=== PATIENT | female | born 1960 | race Caucasian/White ===

== ENCOUNTER → 2018-01-26 12:54 | Outpatient (CLI) | payer BC, SELFPAY ==
--- NOTE | 2018-01-26 12:58 | MR_ITS ---
MR lower leg RT wo con Ordering Physician: Trina House MD Patient Age: 58 years: Female HISTORY: ITS.REASON: RIGHT LEG PAIN Pop sensation sensation posterior aspect of tibia-fibula. Now Unable to bear weight painful to touch. TECHNIQUE: Multiplanar multisequence imaging 1.5T MRI COMPARISON : FINDINGS There is diffuse edema seen throughout the medial belly gastrocnemius muscle which becomes most pronounced towards its its myotendinous junction. Findings reflect moderately pronounced muscle strain and interstitial tear of medial head of gastrocnemius muscle, with edema most evident distally and towards towards its myotendinous junction.. Common site for this interstitial muscle tear. However also note focal Fluid reticulation actually most evident just medial to the gastrocnemius.,- Between the gastrocnemius and Soleus muscle. I would note that a tear of the plantaris tendon can't yield fluid in this latter space. An can give rise to the pop sensation described.. These entities can occur together which may be the case here., However medial head gastrocnemius interstitial tear will have a a longer recovery time then a than the small less problematic plantaris tendon rupture. IMPRESSION: Muscle strain injury & interstitial muscle tear of the medial head gastrocnemius... Edema at medial gastrocnemius muscle which becomes more evident towards its distal myotendinous junction. I would also note moderate focal fluid collecting medial to the gastrocnemius muscle-between it & the Soleus muscle. Although conceivably this could be related to the gastrocnemius muscle injury there is more focal fluid collection than I would expect. Thus associated rupture of the small plantaris tendon suspect, as it could yield this appearance & both can be occur with the same type injury..... Rupture of the small relatively insignificant tendon may yield the pop sensation at time of injury. The gastrocnemius muscle strain/interstitial tear is more significant injury and will require longer recovery .
== END ==
PROVIDERS: Family Provider Family Medicine; PCP Family Medicine; Visit Provider Emergency Medicine
DX: M79.604 Pain in right leg (principal)
CPT/HCPCS: 73718

== ENCOUNTER → 2018-07-28 13:05 | Outpatient (CLI) | payer BC, SELFPAY ==
--- NOTE | 2018-07-28 13:10 | XR_ITS ---
XR wrist RT min 3V HISTORY ITS.REASON: wrist pain ORDERING PHYSICIAN: Pebbles Ribeiro MD PATIENT AGE: 58 years FINDINGS: There is negative ulnar variance is some obliquity of the distal radioarticular surface which is a question clinical significance. No obvious impingement of the radius at the radioulnar joint. The carpal bones have an unremarkable appearance. IMPRESSION: Negative ulnar variance with oblique angle of the distal radius
== END ==
PROVIDERS: PCP Family Medicine; Visit Provider Orthopaedic Surgery
DX: M25.531 Pain in right wrist (principal)
CPT/HCPCS: 73110

== ENCOUNTER → 2018-08-23 09:41 | Outpatient (CLI) | payer BC, SELFPAY ==
[2018-08-23 10:04] LABS: Basophils % 0.6 % (0.1-2.0); Eosinophils # 0.2 K/mm3 (0.0-0.4); Eosinophils % 3.2 % (0.1-12.0); Hematocrit 44.8 % (37.0-47.0); Hemoglobin 14.7 g/dL (12.2-16.2); Lymphocytes # 2.4 K/mm3 (0.7-4.5); Lymphocytes % 45.4 % (10-50); Mean Corpuscular HGB Conc 32.8 g/dL (31.8-35.4); Mean Corpuscular Hemoglobin 29.2 pg (27.0-31.2); Mean Corpuscular Volume 89.2 fl (81-99); Mean Platelet Volume 6.9 fl (7.4-10.4); Monocytes # 0.3 K/mm3 (0.1-1.0); Monocytes % 5.8 % (1.7-9.3); Neutrophils # 2.4 K/mm3 (1.8-7.8); Neutrophils % 44.9 % (37.0-80.0); Platelet Count 165 K/mm3 (142-424); Red Blood Count 5.02 M/mm3 (4.20-5.40); Red Cell Distribution Width 14.6 % (11.5-17.5); White Blood Count 5.2 K/mm3 (4.8-10.8)
[2018-08-23 11:35] LABS: Anion Gap 14.3 mEq/L (5-15); Blood Urea Nitrogen 8 mg/dL (7-18); Calcium 9.4 mg/dL (8.5-10.1); Carbon Dioxide 28 mmol/L (21.0-32.0); Chloride 106 mmol/L (98-107); Creatinine,Serum 0.53 mg/dL (0.55-1.02); Estimated Glomerular Filt Rate 119 ml/min (>60); GFR (African American) 144 ML/MIN (>60); Glucose 104 mg/dL (74-106); Potassium 4.3 mmoL/L (3.5-5.1); Sodium 144 mmol/L (136-145)
== END ==
PROVIDERS: Visit Provider Orthopaedic Surgery
DX: Z01.818 Encounter for other preprocedural examination (principal); G56.01 Carpal tunnel syndrome, right upper limb
CPT/HCPCS: 36415; 80048; 85025

== ENCOUNTER → 2019-01-01 07:16 | Outpatient (CLI) | payer OTHER, SELFPAY ==
[2019-01-01 09:19] LABS: Hemoglobin A1C 6.7 % (0.0-7.0)
[2019-01-01 10:54] LABS: Alanine Aminotransferase 77 U/L (12-78); Albumin Level 3.5 gm/dL (3.4-5.0); Albumin/Globulin Ratio 1.1 (1.1-1.8); Alkaline Phosphatase 88 U/L (46-116); Anion Gap 12.3 mEq/L (5-15); Aspartate Amino Transferase 45 U/L (15-37); Bilirubin,Total 0.4 mg/dL (0.2-1.0); Blood Urea Nitrogen 9 mg/dL (7-18); Calcium 8.7 mg/dL (8.5-10.1); Carbon Dioxide 29 mmol/L (21.0-32.0); Chloride 106 mmol/L (98-107); Chol/HDL Ratio 7.7 (1-3.5); Cholesterol 270 mg/dL (140-200); Creatinine,Serum 0.62 mg/dL (0.55-1.02); Estimated Glomerular Filt Rate 100 ml/min (>60); GFR (African American) 120 ML/MIN (>60); Globulin 3.2 gm/dl (1.3-3.2); Glucose 113 mg/dL (74-106); HDL Cholesterol 35 mg/dL (29-89); LDL Cholesterol 194 mg/dL (0-130); Potassium 4.3 mmoL/L (3.5-5.1); Sodium 143 mmol/L (136-145); Thyroid Stimulating Hormone 0.53 uIU/ml (0.358-3.740); Total Protein,Serum 6.7 gm/dL (6.4-8.2); Triglycerides 204 mg/dL (30-200); VLDL Cholesterol 41 mg/dL (0-40)
== END ==
PROVIDERS: Visit Provider Family Medicine
DX: E11.9 Type 2 diabetes mellitus without complications (principal); Z79.84 Long term (current) use of oral hypoglycemic drugs; E78.5 Hyperlipidemia, unspecified; E03.9 Hypothyroidism, unspecified
CPT/HCPCS: 36415; 80053; 80061; 83036; 84443

== ENCOUNTER → 2019-08-31 17:09 | Outpatient (CLI) | payer OTHER, SELFPAY ==
--- NOTE | 2019-08-31 17:21 | XR_ITS ---
PROCEDURE: XR CHEST 2V CLINICAL HISTORY: BRONCHITIS COMPARISON: CTAC CTA-CHEST from 02/22/2014 CXR CHEST(2 VIEWS-NOT PORTABLE) from 02/24/2014 CXR CHEST(2 VIEWS-NOT PORTABLE) from 03/22/2014 CXR CHEST(2 VIEWS-NOT PORTABLE) from 06/12/2016 FINDINGS: The cardiomediastinal silhouette and pulmonary vascularity are within normal limits. The lungs are clear without infiltrates, suspicious nodules, or pleural effusions. No acute bony abnormalities. IMPRESSION: No acute findings. Dictated by: Dmitry Yang 09/01/2019 09:23 Electronically signed by Dmitry Yang in [facility] 09/01/2019 09:23
== END ==
PROVIDERS: PCP Physician Assistant; Visit Provider Physician Assistant
DX: J40 Bronchitis, not specified as acute or chronic (principal)
CPT/HCPCS: 71046

== ENCOUNTER → 2019-12-19 11:57 | Outpatient (CLI) | payer OTHER, SELFPAY ==
--- NOTE | 2019-12-19 12:02 | XR_ITS ---
PROCEDURE: XR FOOT WT BEARING LT 3V CLINICAL INDICATION: pain COMPARISON: FTR3 FOOT-RT-3 VIEWS from 06/21/2013 FINDINGS: No fracture or dislocation. No lytic or blastic change. There is normal mineralization. There are mild osteoarthritic changes at the 1st MTP joint. There is borderline pes planus. Other findings:None. IMPRESSION: Mild osteoarthritis of the 1st MTP joint with borderline pes planus Dictated by: Jose Miguel Ferreira MD 12/19/2019 12:19 Electronically signed by Jose Miguel Ferreira MD in [facility] 12/19/2019 12:19
--- NOTE | 2019-12-19 12:02 | XR_ITS ---
PROCEDURE: XR FOOT WT BEARING RT 3V CLINICAL INDICATION: pain COMPARISON: FTR3 FOOT-RT-3 VIEWS from 06/21/2013 FINDINGS: No fracture or dislocation. No lytic or blastic change. There is normal mineralization. The joint spaces are well-preserved. No significant degenerative/arthritic changes. No erosive changes evident. Other findings:None. IMPRESSION: No acute findings. Dictated by: Jose Miguel Ferreira MD 12/19/2019 12:19 Electronically signed by Jose Miguel Ferreira MD in [facility] 12/19/2019 12:19
== END ==
PROVIDERS: PCP Family Medicine; Visit Provider Podiatrist
DX: M79.672 Pain in left foot (principal); M79.671 Pain in right foot
CPT/HCPCS: 73630

== ENCOUNTER → 2020-03-28 14:32 | Outpatient (CLI) | payer OTHER, SELFPAY ==
[2020-03-28 15:14] LABS: Basophils % 0.6 % (0.1-2.0); Eosinophils # 0.3 K/mm3 (0.0-0.4); Eosinophils % 4.2 % (0.1-12.0); Hematocrit 45.6 % (37.0-47.0); Hemoglobin 15.5 g/dL (12.2-16.2); Lymphocytes # 2.7 K/mm3 (0.7-4.5); Lymphocytes % 41.6 % (10-50); Mean Corpuscular Hemoglobin 31.2 pg (27.0-31.2); Mean Corpuscular Volume 91.7 fl (81-99); Mean Platelet Volume 8.3 fl (7.4-10.4); Monocytes # 0.4 K/mm3 (0.1-1.0); Monocytes % 6.4 % (1.7-9.3); Neutrophils % 47.1 % (37.0-80.0); Platelet Count 183 K/mm3 (142-424); Red Blood Count 4.97 M/mm3 (4.20-5.40); White Blood Count 6.4 K/mm3 (4.8-10.8)
[2020-03-30 20:30] LABS: Covid-19 Nasal PCR Sendout Lex Not Detected
== END ==
PROVIDERS: PCP Family Medicine; Visit Provider Nurse Practitioner Family
DX: Z03.818 Encounter for observation for suspected exposure to other biological agents ruled out (principal)
CPT/HCPCS: 36415; 85025; U0004

== ENCOUNTER → 2020-05-01 07:12 | Outpatient (CLI) | payer OTHER, SELFPAY ==
[2020-05-01 09:04] LABS: Chloride 102 mmol/L (98-107); Potassium 4.2 mmoL/L (3.5-5.1); Sodium 142 mmol/L (136-145)
[2020-05-01 09:07] LABS: Alanine Aminotransferase 42 U/L (12-78); Albumin/Globulin Ratio 1.4 (1.1-1.8); Alkaline Phosphatase 83 U/L (38-126); Anion Gap 12.2 mEq/L (5-15); Aspartate Amino Transferase 39 U/L (14-36); Bilirubin,Total 0.6 mg/dl (0.2-1.3); Blood Urea Nitrogen 6 mg/dl (7-17); Carbon Dioxide 32 mmol/L (22.0-30.0); Cholesterol 176 mg/dl (140-200); Estimated Glomerular Filt Rate 127 ml/min (>60); GFR (African American) 153 ML/MIN (>60); Globulin 2.8 g/dL (1.3-3.2); Total Protein,Serum 6.8 g/dl (6.3-8.2); Triglycerides 145 mg/dl (30-150); VLDL Cholesterol 29 mg/dL (0-40)
[2020-05-01 09:08] LABS: Calcium 9.4 mg/dl (8.4-10.2); Glucose 140 mg/dl (74-100); HDL Cholesterol 44 mg/dl (40-60)
[2020-05-01 09:10] LABS: Hemoglobin A1C 6.5 % (4.0-6.0)
[2020-05-01 09:18] LABS: Direct LDL Cholesterol 109.66 mg/dL (100-129)
[2020-05-01 09:24] LABS: T4 (Thyroxine) 13.1 ug/dl (5.53-11.0)
[2020-05-01 09:38] LABS: Thyroid Stimulating Hormone 0.12 uIU/mL (0.465-4.68)
== END ==
PROVIDERS: Visit Provider Family Medicine
DX: E78.5 Hyperlipidemia, unspecified (principal); E03.9 Hypothyroidism, unspecified; F41.8 Other specified anxiety disorders; E11.9 Type 2 diabetes mellitus without complications; Z79.84 Long term (current) use of oral hypoglycemic drugs
CPT/HCPCS: 36415; 80053; 80061; 83036; 84436; 84443

== ENCOUNTER 2020-07-01 09:21 | Emergency (ER) | payer OTHER, SELFPAY ==
[2020-07-01 09:33] VITALS: BP 147/89; PULSE 85; RESP 20; TEMP 36.7; O2SAT 97; BMI 33.3
--- NOTE | 2020-07-01 09:52 | HMH.EDUTC ---
[facility] [place] Clinical Impression: Viral syndrome, Close exposure to COVID-19 virus Sinusitis Qualifiers: Sinusitis location: unspecified location Chronicity: acute Recurrence: non-recurrent Qualified Code(s): J01.90 - Acute sinusitis, unspecified Disposition: Home, Self-Care Condition on Discharge: Good Instructions: DI for Sinusitis, Preventing the Spread of Coronavirus Discharge Instructions Additional Instructions: Drink plenty of fluids. Take tylenol for pain or fever. Take the medications as directed. Follow up with your regular doctor. GO TO THE ER FOR ANY WORSENING SYMPTOMS Prescriptions: Ondansetron [Zofran 4mg ODT] 4 mg PO Q8HP PRN #12 tab.rapdis PRN Reason: Nausea Transmission Status: Received by [id number] Doxycycline Hyclate [Doxycycline 100mg Capsule] 100 mg PO Q12 10 Days #20 cap Transmission Status: Received by [id number] Benzonatate [Tessalon Perle 100mg Cap] 100 mg PO TIDP PRN #30 cap PRN Reason: Cough Transmission Status: Received by [id number] Referrals: Cameron Cedeno MD [Primary Care Provider] - Time of Disposition: 10:21 Medical Decision Making - Medical Records Medical records reviewed: No: I reviewed the patient's medical records. - Santino Inquiry Pt receiving controlled substance: No Vital Signs: 07/01/20 09:33 07/01/20 10:28 Temperature 98.0 F 98.0 F Temperature Source Oral Oral Pulse Rate 85 Pulse Rate [Radial] 85 Respiratory Rate 20 20 Blood Pressure 147/89 H Blood Pressure [Right Arm] 147/89 H Blood Pressure Mean [Right Arm] 108 Blood Pressure Source Automatic Cuff Blood Pressure Source [Right Arm] Automatic Cuff Blood Pressure Position Sitting Blood Pressure Position [Right Arm] Sitting 02 Sat by Pulse Oximetry 97 Oxygen Delivery Method Room Air Room Air Orders (Tests/Meds): ORDERS Category Date Time Status Covid-19 Nasal PCR Sendout [facility] Routine Lab 07/01/20 09:32 [place] [facility] [place] - General Stated complaint: v/d Time Seen by Provider: 07/01/20 09:52 Mode of Arrival: Ambulatory Source of Information: Patient Limitations: No Limitations Description of Symptoms (Recalled from Triage Doc. by RN): cough, congestion, N/V, loss of taste and smell, SOB, KRUSE since thursday. HEENT Symptoms (Recalled from RN notes): Yes Resp Symptoms (Recalled from RN notes): Yes Skin Symptoms (Recalled from RN notes): No MS Symptoms (Recalled from RN notes): No Functional Status (Recalled from RN notes): wnl - History of Present Illness Provider Complaint: She c/o body aches, fever (undocumented), n/v/d, cough, sinus congestion, and sore throat since yesterday morning. - Related Data Home Medications Medication Instructions Recorded Confirmed metformin 500 mg tablet 500 mg PO BID 07/28/18 01/31/20 sitagliptin 50 mg tablet 50 mg PO DAILY 07/28/18 01/31/20 apixaban 2.5 mg tablet 2.5 mg PO BID 12/20/19 01/31/20 atorvastatin 20 mg tablet 20 mg PO tab 01/31/20 01/31/20 levothyroxine 100 mcg tablet 100 mcg PO tab 01/31/20 01/31/20 Previous Rx's Medication Instructions Recorded diclofenac sodium 1 % topical gel 4 g TOPICAL QID PRN #100 g 01/31/20 Benzonatate [Tessalon Perle 100mg 100 mg PO TIDP PRN #30 cap 07/01/20 Cap] Doxycycline Hyclate [Doxycycline 100 mg PO Q12 10 Days #20 cap 07/01/20 100mg Capsule] Ondansetron [Zofran 4mg ODT] 4 mg PO Q8HP PRN #12 tab.rapdis 07/01/20 Allergies Allergy/AdvReac Type Severity Reaction Status Date / Time cefazolin Allergy Intermediate I-HIVES Verified 01/31/20 15:14 erythromycin base Allergy Intermediate I-RASH Verified 01/31/20 15:14 [From E-MYCIN] - Worker's Comp Is this a Worker's Comp case?: No [facility] History - Hepatitis A Screen Drug use history?: No High risk sexual behaviors?: No History of sexually transmitted infection?: No Currently employed?: No Childcare worker?: No Do you have indoor plumbing?: Yes Do you have
[2020-07-01 10:28] VITALS: BP 147/89; PULSE 85; RESP 20; TEMP 36.7; O2SAT 97
[2020-07-02 11:43] LABS: Covid-19 Nasal PCR Sendout UK Detected
--- NOTE | 2020-07-02 11:44 | PC.NURSE ---
PT CALLED AND NOTIFIED OF POSITIVE COVID RESULT
== END 2020-07-01 10:29 | disposition home or self-care (01) ==
PROVIDERS: Emergency Provider Nurse Practitioner Family; PCP Family Medicine
DX: U07.1 COVID-19 (principal); J01.90 Acute sinusitis, unspecified; E78.5 Hyperlipidemia, unspecified; E11.9 Type 2 diabetes mellitus without complications; Z79.84 Long term (current) use of oral hypoglycemic drugs; Z79.899 Other long term (current) drug therapy
CPT/HCPCS: 99201; U0003

== ENCOUNTER 2020-07-10 11:55 | Emergency (ER) | payer OTHER, SELFPAY ==
[2020-07-10 12:54] VITALS: BP 143/89; PULSE 92; RESP 19; TEMP 36.9; O2SAT 98; BMI 33.3
--- NOTE | 2020-07-10 13:09 | HMH.EDUTC ---
[facility] [place]ression: COVID-19 Disposition: Home, Self-Care Condition on Discharge: Good Instructions: Preventing the Spread of Coronavirus Discharge Instructions Referrals: Cameron Cedeno MD [Primary Care Provider] - Time of Disposition: 13:10 Medical Decision Making - Medical Records Medical records reviewed: No: I reviewed the patient's medical records. - Santino Inquiry Pt receiving controlled substance: No Vital Signs: 07/10/20 12:54 07/10/20 13:20 Temperature 98.4 F 98.4 F Temperature Source Oral Oral Pulse Rate 92 H Pulse Rate [Left] 92 H Respiratory Rate 19 19 Blood Pressure 143/89 H Blood Pressure [Right Arm] 143/89 H Blood Pressure Mean [Right Arm] 107 Blood Pressure Source [Right Arm] Automatic Cuff Blood Pressure Position [Right Arm] Sitting 02 Sat by Pulse Oximetry 98 Oxygen Delivery Method Room Air Orders (Tests/Meds): ORDERS Category Date Time Status Covid-19 Nasal PCR Sendout [facility] Stat Lab 07/10/20 12:40 [place] [facility] [place] General Stated complaint: covid retested Time Seen by Provider: 07/10/20 13:09 Mode of Arrival: Ambulatory Source of Information: Patient Limitations: No Limitations Description of Symptoms (Recalled from Triage Doc. by RN): Retest Covid HEENT Symptoms (Recalled from RN notes): No Resp Symptoms (Recalled from RN notes): No Skin Symptoms (Recalled from RN notes): No MS Symptoms (Recalled from RN notes): No Functional Status (Recalled from RN notes): wnl - History of Present Illness Provider Complaint: She is here to be retested for covid. She has been positive. She needs a negative test to be allowed to go back to work. - Related Data Home Medications Medication Instructions Recorded Confirmed metformin 500 mg tablet 500 mg PO BID 07/28/18 01/31/20 sitagliptin 50 mg tablet 50 mg PO DAILY 07/28/18 01/31/20 apixaban 2.5 mg tablet 2.5 mg PO BID 12/20/19 01/31/20 atorvastatin 20 mg tablet 20 mg PO tab 01/31/20 01/31/20 levothyroxine 100 mcg tablet 100 mcg PO tab 01/31/20 01/31/20 Previous Rx's Medication Instructions Recorded diclofenac sodium 1 % topical gel 4 g TOPICAL QID PRN #100 g 01/31/20 Benzonatate [Tessalon Perle 100mg 100 mg PO TIDP PRN #30 cap 07/01/20 Cap] Doxycycline Hyclate [Doxycycline 100 mg PO Q12 10 Days #20 cap 07/01/20 100mg Capsule] Ondansetron [Zofran 4mg ODT] 4 mg PO Q8HP PRN #12 tab.rapdis 07/01/20 Allergies Allergy/AdvReac Type Severity Reaction Status Date / Time cefazolin Allergy Intermediate I-HIVES Verified 07/10/20 12:56 erythromycin base Allergy Intermediate I-RASH Verified 07/10/20 12:56 [From E-MYCIN] - Worker's Comp Is this a Worker's Comp case?: No Is this an [facility] Worker's Comp?: No Is this a [facility] Worker's Comp?: No [facility] History - Hepatitis A Screen Drug use history?: No High risk sexual behaviors?: No History of sexually transmitted infection?: No Currently employed?: No Childcare worker?: No Do you have indoor plumbing?: No Do you have electricity?: No Attestation statement:: This patient has been screened for Hepatitis A risk factors. I have reviewed the patient's past medical history: Yes Medical History: Reports:: Diabetes Mellitus Type 2, Hyperlipidemia Denies:: Cancer, Diabetes Mellitus Type 1, Internal Pacemaker, MRSA, Seizures Other Medical History: Reports: Arthritis. Denies: Blood Transfusion Reaction Laterality Cases: Left: Arthroscopy Shoulder, Bilateral: Other Other Surgeries: Yes: No Previous Surgery, Cholecystectomy, Hysterectomy-Total, Tubal Ligation, Other. No: Pacemaker Amputation: No Fractures: No Comment: Back fusion procedure - Social History Smoking Status: Never smoker Alcohol Intake: never Occupational Status: other Housing: house Household Members: family Family Hx:: Cancer, Hypertension, Diabetes, Hyperlipidemia, Coronary Artery Disease ROS Obtained: Yes All systems reviewed & no additional complaints
[2020-07-10 13:20] VITALS: BP 143/89; PULSE 92; RESP 19; TEMP 36.9; O2SAT 98
[2020-07-11 10:01] LABS: Covid-19 Nasal PCR Sendout P&C POSITIVE
--- NOTE | 2020-07-11 10:27 | PC.NURSE ---
PT NOTIFIED OF POSITIVE BOBY COLIN
== END 2020-07-10 13:20 | disposition home or self-care (01) ==
PROVIDERS: Emergency Provider Nurse Practitioner Family; PCP Family Medicine
DX: U07.1 COVID-19 (principal); E11.9 Type 2 diabetes mellitus without complications; E78.5 Hyperlipidemia, unspecified
CPT/HCPCS: 99201; U0004

== ENCOUNTER → 2020-10-01 07:25 | Outpatient (CLI) | payer OTHER, SELFPAY ==
--- NOTE | 2020-10-01 07:41 | XR_ITS ---
PROCEDURE: XR CHEST 2V CLINICAL HISTORY: SOB COMPARISON: CT CTAC CTA-CHEST from 02/22/2014 CR CXR CHEST(2 VIEWS-NOT PORTABLE) from 03/22/2014 CR CXR CHEST(2 VIEWS-NOT PORTABLE) from 06/12/2016 CR XR CHEST 2V from 08/31/2019 FINDINGS: The cardiomediastinal silhouette and pulmonary vascularity are within normal limits. The lungs are clear without infiltrates, suspicious nodules, or pleural effusions. There is depression of the left shoulder with inferior angulation of the distal clavicle. IMPRESSION: No acute findings. Dictated by: Jose Miguel Ferreira MD 10/01/2020 09:25 Jose Miguel Ferreira MD in [facility] 10/01/2020 09:25
[2020-10-01 08:51] LABS: Alanine Aminotransferase 56 U/L (12-78); Albumin Level 4.2 g/dl (3.5-5.0); Albumin/Globulin Ratio 1.6 (1.1-1.8); Alkaline Phosphatase 90 U/L (38-126); Anion Gap 10.2 mEq/L (5-15); Aspartate Amino Transferase 60 U/L (14-36); Bilirubin,Total 0.7 mg/dl (0.2-1.3); Blood Urea Nitrogen 9 mg/dl (7-17); Calcium 9.3 mg/dl (8.4-10.2); Carbon Dioxide 29 mmol/L (22.0-30.0); Chloride 106 mmol/L (98-107); Chol/HDL Ratio 4.5 (1-3.5); Cholesterol 192 mg/dl (140-200); Estimated Glomerular Filt Rate 103 ml/min (>60); GFR (African American) 124 ML/MIN (>60); Globulin 2.6 g/dL (1.3-3.2); Glucose 166 mg/dl (74-100); HDL Cholesterol 43 mg/dl (40-60); Potassium 4.2 mmoL/L (3.5-5.1); Sodium 141 mmol/L (136-145); Total Protein,Serum 6.8 g/dl (6.3-8.2); Triglycerides 183 mg/dl (30-150); VLDL Cholesterol 37 mg/dL (0-40)
[2020-10-01 09:02] LABS: C-Reactive Protein 2.9 mg/L (0-4); Direct LDL Cholesterol 117.91 mg/dL (100-129)
[2020-10-01 09:21] LABS: Hemoglobin A1C 7.2 % (4.0-6.0); Thyroid Stimulating Hormone 0.18 uIU/mL (0.465-4.68)
== END ==
PROVIDERS: Visit Provider Family Medicine
DX: R06.02 Shortness of breath (principal); B94.8 Sequelae of other specified infectious and parasitic diseases; E11.9 Type 2 diabetes mellitus without complications; E03.9 Hypothyroidism, unspecified; E78.5 Hyperlipidemia, unspecified; Z79.84 Long term (current) use of oral hypoglycemic drugs; Z86.16 Personal history of COVID-19
CPT/HCPCS: 36415; 71046; 80053; 80061; 83036; 84443; 86140

== ENCOUNTER → 2020-12-12 15:59 | Outpatient (CLI) | payer OTHER, SELFPAY ==
[2020-12-12 16:39] LABS: D-Dimer 0.29 ug/mL (0.0-0.5)
== END ==
PROVIDERS: Visit Provider Internal Medicine Pulmonary Disease
DX: Z86.16 Personal history of COVID-19 (principal); B94.8 Sequelae of other specified infectious and parasitic diseases; R06.09 Other forms of dyspnea; R05 Cough
CPT/HCPCS: 36415; 85378

== ENCOUNTER → 2021-01-09 07:47 | Outpatient (CLI) | payer OTHER, SELFPAY | PROVIDERS: PCP Family Medicine; Visit Provider Internal Medicine Pulmonary Disease | DX: R06.00 Dyspnea, unspecified (principal); Z86.16 Personal history of COVID-19 | CPT/HCPCS: 94060; 94618; 94726; 94729 ==

== ENCOUNTER → 2021-05-31 08:23 | Outpatient (CLI) | payer BC, SELFPAY | PROVIDERS: PCP Family Medicine; Visit Provider Nurse Practitioner | DX: Z20.822 Contact with and (suspected) exposure to COVID-19 (principal) | CPT/HCPCS: C9803; U0003; U0005 ==

== ENCOUNTER → 2021-08-26 13:02 | Outpatient (CLI) | payer BC, SELFPAY ==
[2021-08-26 14:15] VITALS: PULSE 92; PULSE 95
== END ==
PROVIDERS: PCP Family Medicine; Visit Provider Internal Medicine Pulmonary Disease
DX: R06.09 Other forms of dyspnea (principal)
CPT/HCPCS: 94060; 94640; 94727; 94729

== ENCOUNTER → 2022-03-03 07:45 | Outpatient (CLI) | payer BC, SELFPAY ==
--- NOTE | 2022-03-03 07:48 | MM_ITS ---
PROCEDURE INFORMATION: Exam: MG Bilateral Screening 3D Mammography Exam date and time: 03/03/2022 7:53 AM Age: 62 years old Clinical indication: Screening examination. Her mother had breast cancer in her early 40s. TECHNIQUE: Imaging protocol: Bilateral Screening tomosynthesis and 2D mammography including computer-aided detection (CAD) when performed. COMPARISON: 1. MG DMSB DIG MAMM-SCREEN MARIUSZ W/CAD 02/11/2017 9:22 AM 2. MG DMSB DIG MAMM-SCREEN MARIUSZ 01/08/2016 8:41 AM FINDINGS: MAMMOGRAPHY: Breast composition: There are scattered areas of fibroglandular density. Mass: No suspicious mass. Architectural distortion: None. Calcifications: No suspicious calcifications. Asymmetric density: None. Skin thickening: None. Axillary adenopathy: None. IMPRESSION: No mammographic evidence of malignancy. Annual screening is recommended unless otherwise clinically indicated. ASSESSMENT: BI-RADS Category 1: Negative
--- NOTE | 2022-03-03 07:49 | XR_ITS ---
FINAL REPORT TECHNIQUE: Bone mineral density was calculated of the right forearm and bilateral hips. CLINICAL HISTORY: . post menopausal FINDINGS: DEXA BONE DENSITY AXIAL SKELETON Using the right forearm the bone mineral density of the distal 1/3 is 0.675 g/cm2, corresponding to T-score of -0.3. Using the left hip, the bone mineral density of the femoral neck is 0.981 g/cm2, corresponding to a T-score of 1.2. Using the right hip, the bone mineral density of the femoral neck is 0.930 g/cm2, corresponding to a T-score of 0.7. NOTE: T-score: Standard deviation compared with peak bone mass of young adult mean. *Following the recommendations of the International Society of Bone densitometry, classification of hip BMD is based on the lower of two T-scores; total hip or femoral neck. IMPRESSION: Normal bone mineral density of the lumbar spine and hip. FRAX not reported because all T-scores for right forearm and bilateral hips are at or above -1.0 Reviewed, Interpreted and Dictated by David Vazquez MD Transcribed by Marie Pierre Authenticated and [facility]
== END ==
PROVIDERS: PCP Family Medicine; Visit Provider Family Medicine
DX: Z12.31 Encounter for screening mammogram for malignant neoplasm of breast (principal); Z78.0 Asymptomatic menopausal state
CPT/HCPCS: 77063; 77067; 77080

== ENCOUNTER → 2022-08-30 08:18 | Outpatient (CLI) | payer BC, SELFPAY ==
[2022-08-30 08:45] LABS: Hemoglobin A1C 7.8 % (4.0-6.0)
[2022-08-30 08:53] LABS: Alanine Aminotransferase 112 U/L (12-78); Albumin Level 4.4 g/dl (3.5-5.0); Albumin/Globulin Ratio 1.4 (1.1-1.8); Alkaline Phosphatase 114 U/L (38-126); Anion Gap 10.1 mEq/L (5-15); Aspartate Amino Transferase 117 U/L (14-36); Blood Urea Nitrogen 10 mg/dl (7-17); Calcium 9.5 mg/dl (8.4-10.2); Carbon Dioxide 27 mmol/L (22.0-30.0); Chloride 108 mmol/L (98-107); Chol/HDL Ratio 4.4 (1-3.5); Cholesterol 195 mg/dl (140-200); Estimated Glomerular Filt Rate 102 ml/min (>60); GFR (African American) 123 ML/MIN (>60); Globulin 3.1 g/dL (1.3-3.2); Glucose 204 mg/dl (74-100); HDL Cholesterol 44 mg/dl (40-60); Potassium 4.1 mmoL/L (3.5-5.1); Sodium 141 mmol/L (136-145); Total Protein,Serum 7.5 g/dl (6.3-8.2); Triglycerides 208 mg/dl (30-150); VLDL Cholesterol 42 mg/dL (0-40)
[2022-08-30 09:04] LABS: Direct LDL Cholesterol 117.25 mg/dL (100-129)
[2022-08-30 09:24] LABS: Thyroid Stimulating Hormone 1.27 uIU/mL (0.465-4.68)
== END ==
PROVIDERS: PCP Family Medicine; Visit Provider Family Medicine
DX: E11.9 Type 2 diabetes mellitus without complications (principal); E03.9 Hypothyroidism, unspecified; E78.5 Hyperlipidemia, unspecified; Z79.84 Long term (current) use of oral hypoglycemic drugs
CPT/HCPCS: 36415; 80053; 80061; 83036; 84443

== ENCOUNTER → 2022-10-01 07:47 | Outpatient (CLI) | payer BC, SELFPAY ==
--- NOTE | 2022-10-01 07:49 | US_ITS ---
FINAL REPORT CLINICAL HISTORY: ELEVATED LFT FINDINGS: RIGHT UPPER QUADRANT ULTRASOUND Sonographic images of the right upper quadrant were obtained. The pancreas is partially obscured. There is fatty infiltration of the liver. The gallbladder is absent. There is a small amount of fluid in the gallbladder fossa. The gallbladder appears normal without evidence of gallstones.The common duct is normal. Limited images of the right kidney are normal. IMPRESSION: Small amount of fluid in the gallbladder fossa. Fatty liver. Reviewed, Interpreted and Dictated by David Vazquez MD Transcribed by Margo Sands Authenticated and [facility]
== END ==
LOC: RAD 07:47
PROVIDERS: PCP Family Medicine; Visit Provider Physician Assistant
DX: R79.89 Other specified abnormal findings of blood chemistry (principal)
CPT/HCPCS: 76705

== ENCOUNTER → 2023-02-16 11:10 | Outpatient (CLI) | payer BC, SELFPAY ==
[2023-02-18 01:08] LABS: Calprotectin, Fecal <5 ug/g (0-120)
[2023-02-19 22:14] LABS: Pancreatic Elastase, Fecal 432 (>200)
== END ==
PROVIDERS: PCP Physician Assistant; Visit Provider Nurse Practitioner
DX: R10.11 Right upper quadrant pain (principal); R19.7 Diarrhea, unspecified
CPT/HCPCS: 82656; 83993

== ENCOUNTER → 2023-02-26 09:45 | Outpatient (CLI) | payer BC, SELFPAY ==
--- NOTE | 2023-02-26 09:45 | US_ITS ---
FINAL REPORT CLINICAL HISTORY: abdominal pain, tenderness ruq COMPARISON: 10/01/2022 FINDINGS: Sonographic images of the right upper quadrant were obtained. The pancreas is partially obscured. The liver is fatty infiltrated. The gallbladder is absent. There is a small amount of fluid in the gallbladder fossa which appears similar to the prior study. The common duct measures 5 mm. Limited images of the right kidney are unremarkable. IMPRESSION: Fatty liver. Small mount of fluid gallbladder fossa, similar to prior. Reviewed, Interpreted and Dictated by Curly Escudero III, MD Transcribed by Elisha Robert Authenticated and [facility]
== END ==
LOC: RAD 09:45
PROVIDERS: PCP Physician Assistant; Visit Provider Nurse Practitioner
DX: R10.9 Unspecified abdominal pain (principal)
CPT/HCPCS: 76705

== ENCOUNTER 2023-03-12 09:47 | Day surgery (SDC) | payer BC, SELFPAY ==
[2023-02-24 14:03] VITALS: BMI 34.6
[2023-03-12] VITALS (7 sets, daily range): BP systolic 101–146; BP diastolic 54–85; PULSE 71–87; RESP 16–18; TEMP 36.3–36.4; O2SAT 94–99
--- NOTE | 2023-03-12 10:07 | EXP.ANES.CKL ---
[facility] Disclaimer: The information contained in this section may have been updated after the patient was seen, as this information can be updated by other users. Medical History Diabetes mellitus, type 2 Hypothyroid Surgical History History of cholecystectomy History of hysterectomy History of lumbar fusion Hx of arthroscopy of shoulder Family History Other Family history of cancer Social History Smoking Status: Never smoker second hand exposure: No alcohol intake: never substance use type: denies use current occupational status: employed Travel in the last 8 weeks: None household members: family housing: house lives independently: No marital status: education level: college service: No mcfp: No current occupational exposures/hazards: No caffeine: No special soledad needs: No agree to transfusion: No do you feel safe at home: Yes victim of physical abuse: No victim of emotional abuse: No victim of sexual abuse: No would you like helpful sources: No [facility] Anesthesia Checklist Patient Identification Patient Identification: Arm Band and Verbal (Name & ) Structural Data Admitted From: Home Planned Operative Procedure/s: colonoscopy Consent for Planned Operative Procedure(s) Verified: Yes Verified Documents: Surgical Consent NPO Status Verified Time NPO: 00:00 Additional verifications Fingerstick Blood Glucose: 154 Patient : No Anesthesia Reactions: No Hx Blood Transfusions: No Blood Transfusion Reaction: No Airway Assessment Mallampati Score:: Class I C-Spine Mobility Assessed: Yes TMJ Mobility Assessed: Yes Dentition: Good Dentition Neurological Assessment Level of Consciousness: Awake and Alert Hx Seizures: No Numbness or tingling in extremities: No Anesthesia Plan Anesthesia Risk discussed: Yes ASA Class: III Anesthesia Type: IV sedation
[2023-03-12 10:14] LABS: POC Glucose,Bedside 154 (70-110)
--- NOTE | 2023-03-12 10:36 | HMH.SCOPE ---
Procedure: Date: 03/12/23 Patient Date of :: 1960 Procedure Performed:: Colonoscopy with polypectomy with snare and forceps Indications:: Right sided abdominal pain Performing Provider:: Susan Cifuentes MD Referring Provider:: Elinor Cifuentes APRN Sedation:: Propofol Procedure:: After placing the patient in the left lateral decubitus position, the colonoscopy was gently inserted into the rectum and under direct visualization advanced to the cecum which was identified by transillumination in the right lower quadrant, identification of the ileocecal valve, appendiceal orifice, and cecal strap. Color, texture, mucosa, and anatomy of the colon were carefully examined with the scope. Findings:: Anal canal: normal Rectum: normal Sigmoid colon: normal, 05 cm polyp identified and removed with cold snare. Descending colon: normal without polyps or inflammatory changes Splenic flexure: normal Transverse colon: normal without polyps or inflammatory changes Hepatic flexure: normal Ascending colon: normal, 0.25 cm polyp identified and removed with forceps. Cecum: normal Terminal ileum: not visualized Impression: Sigmoid and ascending colon polyps Specimens:: Sigmoid and ascending colon polyps Recommendations:: Follow up examination in about THREE years or so, sooner if clinically indicated due to findings of multiple polyps. Complications:: None Estimated blood obtained (mL): 0 Colonoscopy Component Colonoscopy Component Was a colonoscopy performed during today's procedure?: Yes Recommended follow up colonoscopy of at least 10 years?: No If no, follow up colonoscopy recommended in ___ years?: Three Reason for not recommending >/= 10 yr follow-up interval?: As noted in report
== END 2023-03-12 11:15 | disposition home or self-care (01) ==
PROVIDERS: PCP Family Medicine; Visit Provider Internal Medicine Gastroenterology
PROC: (CPT 45380; principal; 2023-03-12 11:00)
DX: D12.2 Benign neoplasm of ascending colon (principal); R10.9 Unspecified abdominal pain; E11.9 Type 2 diabetes mellitus without complications
CPT/HCPCS: 45380; 45385; 82962

== ENCOUNTER 2023-08-27 07:44 | Outpatient (CLI) | payer BC, SELFPAY ==
[2023-08-27 08:23] LABS: Basophils % 0.4 % (0.1-2.0); Eosinophils % 0.6 % (0.1-12.0); Hematocrit 45.6 % (37.0-47.0); Hemoglobin 15.8 g/dL (12.2-16.2); Lymphocytes # 1.7 K/mm3 (0.7-4.5); Lymphocytes % 31.3 % (10-50); Mean Corpuscular HGB Conc 34.7 g/dL (31.8-35.4); Mean Corpuscular Hemoglobin 30.8 pg (27.0-31.2); Mean Corpuscular Volume 88.8 fl (81-99); Mean Platelet Volume 8.7 fl (7.4-10.4); Monocytes # 0.1 K/mm3 (0.1-1.0); Neutrophils # 3.5 K/mm3 (1.8-7.8); Neutrophils % 65.8 % (37.0-80.0); Platelet Count 166 K/mm3 (142-424); Red Blood Count 5.13 M/mm3 (4.20-5.40); Red Cell Distribution Width 14.3 % (11.5-17.5); White Blood Count 5.4 K/mm3 (4.8-10.8)
[2023-08-27 09:05] LABS: Erythrocyte Sedimentation Rate 22 mm/hr (0-30)
[2023-08-27 09:09] LABS: Chloride 104 mmol/L (98-107); Potassium 4.4 mmoL/L (3.5-5.1); Sodium 137 mmol/L (136-145)
[2023-08-27 09:11] LABS: Blood Urea Nitrogen 9 mg/dl (7-17); Estimated Glomerular Filt Rate 162 ml/min (>60); GFR (African American) 196 ML/MIN (>60)
[2023-08-27 09:12] LABS: Alanine Aminotransferase 128 U/L (12-78); Albumin Level 4.4 g/dl (3.5-5.0); Albumin/Globulin Ratio 1.5 (1.1-1.8); Alkaline Phosphatase 131 U/L (38-126); Anion Gap 12.4 mEq/L (5-15); Aspartate Amino Transferase 135 U/L (14-36); Bilirubin,Total 0.8 mg/dl (0.2-1.3); Calcium 9.5 mg/dl (8.4-10.2); Carbon Dioxide 25 mmol/L (22.0-30.0); Globulin 2.9 g/dL (1.3-3.2); Glucose 302 mg/dl (74-100); Total Protein,Serum 7.3 g/dl (6.3-8.2)
[2023-08-27 09:25] LABS: 25-OH Vitamin D, Total 33.7 ng/mL (30-100)
[2023-08-27 12:35] LABS: Vitamin B12 749 pg/mL (239-931)
== END 2023-08-27 23:59 ==
LOC: LAB 07:45
PROVIDERS: PCP Physician Assistant; Visit Provider Physician Assistant
DX: G43.909 Migraine, unspecified, not intractable, without status migrainosus (principal); E66.9 Obesity, unspecified; Z68.33 Body mass index [BMI] 33.0-33.9, adult
CPT/HCPCS: 36415; 80053; 82306; 82607; 84443; 85025; 85651

== ENCOUNTER 2024-09-07 08:02 | Outpatient (CLI) | payer OTHER, SELFPAY ==
--- NOTE | 2024-09-07 08:09 | CT_ITS ---
FINAL REPORT TECHNIQUE: Oral and IV contrast enhanced exam This study was performed with techniques to keep radiation doses as low as reasonably achievable, (ALARA). Individualized dose reduction techniques using automated exposure control or adjustment of mA and/or kV according to the patient''s size were employed. CLINICAL HISTORY: RUQ PAIN COMPARISON: 02/26/2023 FINDINGS: Abdomen: No acute density is seen within the lung bases. There is a dilated cystic duct stump measuring up to 22 mm. There is no biliary ductal dilatation. Solid abdominal organs are unremarkable. No bowel obstruction is present. There is no free air. No fluid collection is seen. There is no adenopathy. Pelvis: There are no changes of appendicitis. There is moderate sigmoid diverticulosis. Patient is status post hysterectomy. No bowel wall thickening is present. There is no free fluid. No pelvic mass is seen. IMPRESSION: No acute intra-abdominal findings. Dilatation of the cystic duct stump without obvious stone disease. Reviewed, Interpreted and Dictated by Cameron Broderick MD Transcribed by Nicole Pelayo Authenticated and [facility]
[2024-09-07] MEDS: SODIUM CHLORIDE 0.9% 10ML SYR (RAD ONLY) 10 ML IV (08:30)
[2024-09-07] MEDS: BARIUM SULFATE(READI-CAT2);450ML BOTTLE 450 ML PO (08:30)
[2024-09-07] MEDS: IOPAMIDOL-370 (76%);100ML BOTTLE 75 ML IV (08:30)
== END 2024-09-07 23:59 | disposition home or self-care (01) ==
LOC: RAD 08:03
PROVIDERS: PCP Physician Assistant; Visit Provider Physician Assistant
DX: R10.13 Epigastric pain (principal); R10.11 Right upper quadrant pain
CPT/HCPCS: 74177; Q9967

== ENCOUNTER 2024-10-17 07:57 | Outpatient (CLI) | payer OTHER, SELFPAY ==
[2024-10-17 09:06] LABS: Basophils % 0.5 % (0.1-2.0); Eosinophils # 0.3 K/mm3 (0.0-0.4); Eosinophils % 5.1 % (0.1-12.0); Hematocrit 47.8 % (37.0-47.0); Hemoglobin 15.3 g/dL (12.2-16.2); Lymphocytes # 2.8 K/mm3 (0.7-4.5); Lymphocytes % 43.3 % (10-50); Mean Corpuscular Hemoglobin 28.6 pg (27.0-31.2); Mean Corpuscular Volume 89.3 fl (81-99); Mean Platelet Volume 10.6 fl (7.4-10.4); Monocytes # 0.4 K/mm3 (0.1-1.0); Monocytes % 5.4 % (1.7-9.3); Neutrophils # 2.9 K/mm3 (1.8-7.8); Neutrophils % 45.4 % (37.0-80.0); Platelet Count 175 K/mm3 (142-424); Red Blood Count 5.35 M/mm3 (4.20-5.40); Red Cell Distribution Width 13.8 % (11.5-17.5); White Blood Count 6.5 K/mm3 (4.8-10.8)
[2024-10-17 09:25] LABS: Chloride 104 mmol/L (98-107)
[2024-10-17 09:26] LABS: Albumin Level 4.4 g/dl (3.5-5.0); Potassium 3.9 mmoL/L (3.5-5.1); Sodium 142 mmol/L (136-145)
[2024-10-17 09:28] LABS: Alanine Aminotransferase 89 U/L (12-78); Anion Gap 13.9 mEq/L (5-15); Aspartate Amino Transferase 90 U/L (14-36); Blood Urea Nitrogen 7 mg/dl (7-17); Carbon Dioxide 28 mmol/L (22.0-30.0); Estimated Glomerular Filt Rate 125 ml/min (>60); GFR (African American) 151 ML/MIN (>60)
[2024-10-17 09:29] LABS: Albumin/Globulin Ratio 1.6 (1.1-1.8); Alkaline Phosphatase 119 U/L (38-126); Bilirubin,Total 0.7 mg/dl (0.2-1.3); Calcium 9.5 mg/dl (8.4-10.2); Globulin 2.7 g/dL (1.3-3.2); Glucose 172 mg/dl (74-100); Total Protein,Serum 7.1 g/dl (6.3-8.2)
[2024-10-18 09:47] LABS: HBsAg Screen Negative (Negative); HCV Ab Non Reactive (Non Reactive); Hep A Ab, IGM Negative (Negative); Hep B Core Ab, IgM Negative (Negative)
[2024-10-20 01:09] LABS: ALT (SGPT) P5P 88 IU/L (0-40); AST (SGOT) P5P 80 IU/L (0-40); Alpha 2-Macroglobulins, Qn 358 mg/dL (110-276); Apolipoprotein A-1 130 mg/dL (116-209); Bilirubin, Total 0.3 mg/dL (0.0-1.2); Cholesterol, Total 162 mg/dL (100-199); Fibrosis Score 0.47 (0.00-0.21); Fibrosis Stage F1-F2 (.); GGT 61 IU/L (0-60); Glucose 178 mg/dL (70-99); Haptoglobin 175 mg/dL (37-355); Steatosis Score 0.88 (0.00-0.40); Triglycerides 320 mg/dL (0-149)
--- OUTSIDE RECORDS SUMMARY | 2024-10-20 20:04 | XMS_ITS | Data Portability ---
Author Organization [facility] [place] [facility] [place] CLOSED Address [address] [place] [address] Care Team Providers Care Structural Architect Name Role Phone CLAY AMOS Primary Care Provider CLAY AMOS Referring Provider [phone] Assessment Encounter Date Assessment Date Assessment LastModified by Organization Details LastModified Time 11/20/2023 11/20/2023 Mrs. 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 I explained that I believe this can be the cause of headaches, due to the inability of spinal fluid to pulse to take her flow up and down the cord. 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 Her MRI does show significant compression on her cord. We discussed a C3-4 decompression with fusion I told her the main reason for this operation is to prevent cord damage and further neurologic decline, but I would be hopeful the headaches would resolve. There is no way to be certain, however. We discussed the procedure of a C3-4 decompression and fusion at length. A CT scan would be performed during the surgery as well as intraoperative neuromonitoring. I used a model to show how the surgery is performed. The risks and benefits of the operation were discussed. She understands that the risks are similar to her lumbar fusion, but we would be working around her vertebral arteries and spinal cord with the surgery adding a small risk of spinal cord damage or vertebral artery injury. She will speak with Lolly, our surgery coordinator, and find a date for surgery. [email or web address] Not available 11/20/2023 13:27:30 01/01/2024 01/01/2024 Pt is S/P C2-C3 Decompression and Fusion 12/14. Here for staple removal. Incision is well healed. No signs of infection. [place] were removed. Pt is doing well. Tolerated procedure well. Not available 01/19/2024 12:21:25 01/18/2024 01/18/2024 Assessment: Staci Molina is a 63-year-old presenting to the clinic status post C2-3 posterior cervical fusion on 12/15/[address] Flores. Patient presents with cervical x-rays completed on 01/18/2024 through [facility]. Patient is overall improving with resolution of preoperative symptoms. Patient continues to wear her cervical collar and should do so for 2 more weeks. Once cervical collar is removed, patient is okay to start introducing bending/twisting and is okay to start lifting no more than 15 to 20 pounds. Patient to start driving as long as she is not taking pain medication. As long as patient continues to do well, patient to return to our clinic in 2 months with repeat cervical AP/lateral x-rays. Patient is happy with the plan and will call our office should she have questions/concern s. Imaging: I personally reviewed cervical x-rays completed on 01/18/2024 through [facility]. Hardware appears intact with no evidence of loosening or migration. Plan: Follow-up in 2 months with repeat cervical x-rays [email or web address] Not available 01/18/2024 10:41:43 03/31/2024 03/31/2024 ASSESSMENT: Staci Molina is a 63-year-old presenting to the clinic status post C2-3 posterior cervical fusion on 12/15/[address] Flores. Patient presents with cervical x-rays completed on 01/18/2024 through [facility]. Patient denies any bowel or bladder control issues, no saddle paresthesias. Dr. Flores is happy with her progress and has released her. No follow-up needed, No restrictions. Patient verbalized understanding and is agreeable to this plan. Patient has no further questions or concerns at this time and is satisfied with this plan of care. Patient seen by surgeon and myself. IMAGING: I personally reviewed the images with Dr. Flores and read the radiologist report. Cervical x-ray AP lateral on 03/31/2024 showed Posterior fusion C2-3 with no complications, no loosening and stable appearance. PLAN: Follow-up as needed [email or web address] Not available 03/31/2024 09:33:18 Plan of Treatment Reminders Order Date Submit Date Provider Last Modified By Organization Details Last Modified Time Details Appointments None record ed. Lab None record ed. Referral None record ed. Procedures None record ed. Surgeries None record ed. Imaging None record ed. Medication Orders None record ed. Patient TargetsNo targets recorded. Patient InstructionsNo instructions recorded. Reason for Referral None Reported. Results Created Date Observation Date Name Description Value Unit Range Abnormal Flag Note LastModifiedBy Organization Detail LastModifiedTime 12/09/19 24 12/09/2023 outpa tient pre-o perat eusebio testi ng* No observ ation record ed. [email or web address] Not Available 12/14 10:14:36 01/18/20 24 01/18/2024 XR, cervi raj spine , 2 or [address] [address] Jose A noel Name: STACI noel : [phone] Jose A noel Orderi ng Provid er: MERYL FLORES EXAM DATE: 2023 EXAM: XR CERVIC AL AP/LAT HISTOR Y: Follow -up of prior surger y COMPAR BLADIMIR: 024 FINDIN GS: There is interv al automatic silk screen printer ior fusion at C2-C3. There is no eviden ce of loosen ing of the hardwa re. There is straig htenin g of the cervic al spine with mild to modera te anteri or margin al spurri ng. No fractu re is identi fied. IMPRES ROOPA: 1. There is interv al automatic silk screen printer ior fusion at C2-C3. Interp reted By: Mami massey MD Electr onical ly Signed By: Mami massey MD on 01/18/20 9:44 AM [facility] [[email or web address]] Radiology [address], [address], 01/18/2024 18:25:47 03/31/20 24 03/31/2024 XR, cervi raj spine , 2 or [address] [place] [address] Jose A noel Name: STACI noel : [phone] Jose A noel Orderi ng Provid er: MARIA M HARMON EXAM DATE: 2023 EXAM: XR CERVIC AL AP/LAT CLINIC AL INFORM ATION: Neck pain IMAGES PROVID ED: AP, latera l, open mouth and submen molly views of the cervic al spine COMPAR BLADIMIR: 2023 FINDIN GS: Previo us automatic silk screen printer ior fusion C2-3. The metall ic elemen ts show no compli cation . No loosen ing. Stable appear ance. Modera te diffus e degene rative change s throug hout the cervic al spine. No radiog raphic eviden ce of injury is seen. IMPRES ROOPA: Modera te DDD with stable C2-3 automatic silk screen printer ior fusion Interp reted By: Jairo Rutledge MD Electr onical ly Signed By: Jairo Rutledge MD on 024 8:52 AM [facility] Radiology [facility] [address] [place] [address], [address], 03/31/2024 16:45:53 Result Notes None recorded. Problems Name Problem SNOMED Code Status Onset Date Resolution Date Notes Provider Name and Address Organization Details Recorded Time Low back pain 470194626 Active 016 From Automated Load;Provi charbel: Sandra, Ozzy;St atus: Active Not Available [facility] 7 06:44:55 Problem Notes None recorded. Procedures Surgical History Date Name Laterality Status Provider Name and Address Organization Details Recorded Time 08/16/19 19 Electromyography (EMG) with Nerve Conduction Study (NCV) completed Connie Sanders (Camille) [facility] 08/16/2018 15:37:20 03/09/20 17 Electromyography (EMG) with Nerve Conduction Study (NCV) completed Jayna Goodson (Nicky) [facility] 03/09/2017 10:55:13 11/05/19 17 Cervical Facet Injection-Curly completed FAUSTO TORIBIO MD [address] [place], [address], [facility] 11/04/2016 14:06:31 10/04/19 17 Trigger Point Injection completed FAUSTO TORIBIO MD [address] [place], [address], [facility] 10/03/2016 15:27:18 Cholecystectomy completed Ban Kuldeep [facility] 03/05/2017 08:59:02 Hysterectomy/bladde r repair completed Ban Kuldeep [facility] 03/05/2017 08:59:19 Other completed Ban Kuldeep [facility] 03/05/2017 08:59:33 Shoulder joint surgery completed Ban Kuldeep [facility] 03/05/2017 08:59:40 Back Surgery completed Ban Kuldeep [facility] 03/05/2017 09:00:07 Imaging Results Imaging Date Name Status LastModified by Organ atmission hospital Details LastModified Time 12/09/2023 outpatient pre-operative testing* completed Information not available 12/15/2023 10:14:36 01/18/2024 XR, cervical spine, 2 or 3 view completed [facility] [[email or web address] Radiology [facility] [address] [place], [address], 01/18/2024 18:25:47 03/31/2024 XR, cervical spine, 2 or 3 view completed [facility] Radiology [facility] [address] [place], [address], 03/31/2024 16:45:53 Procedure Notes None recorded. Medical Equipment None Reported. Allergies Allergen ID Allergen Name Allergen Category Reaction Reaction Severity Criticality Documentation Date Start Date Code Code System Note Provider Name and Address Organization Details Recorded Time [id number] E-Mycin medicatio n Not available Not available Not available 06/06/20162012 8 RxNorm Comme nt: Creat ed By: Jackie parkinson Date: 05/04 3:05: 24 PM; Not Available [facility] 6 08:07:59 [id number] cefazolin sodium medicatio n Not available Not available Not available 06/06/2016201217 1 RxNorm Comme nt: Creat ed By: Jackie Barkersa Chatterjee tesha Date: 05/04 3:05: 07 PM; Not Available [facility] 6 08:57:14 688897 erythromy laureano medicatio n Not available Not available Not available 12/18/20232012 4053 RxNorm Tiffany Crouchario [facility] 4 09:46:48 524742 cefazolin medicatio n hives Not available Not available 12/18/20232012 2180 RxNorm Tiffany Crouchario [facility] 4 09:46:48 Medications Name Sig Start Date Stop Date Status Note LastModified by Organization Details LastModified Time Compound Topical Cream Neurocrea m Reformula tesha (Ketamine 10% Gabapenti n 6% Lidocaine 5% Amitripty line 2% Bupivacai ne 2%) Apply 1-2 grams QID PRN. 08/16 completed Not Available Not Available Not Available cyclobenz aprine 10 mg tablet Take 1 tablet 3 times a day by oral route as needed. 2023 active Not Available Not Available Not Avai lable metformin 500 mg tablet Take 1 tablet every day by oral route. active Not Available Not Available No t Available atorvasta tin 20 mg tablet 20 mg by oral route. 2023 active Not Available Not Available Not Avai lable Zanaflex 2 mg tablet Take 2 tablets twice a day by oral route. 08/16 completed Not Available Not Available Not Available atorvasta tin 10 mg tablet Take 1 tablet every day by oral route. active Not Available Not Available No t Available tizanidin e 4 mg tablet Take 1 tablet twice a day by oral route for 30 days. 03/05 completed Not Available Not Available Not Available Synthroid 125 mcg tablet Daily 03/05 completed Frequenc y: daily;Me dication Descript ion: levothyr oxine; Dosage:1 ; Route:or al; refills: 0; Quantity :30 tablet Not Available Not Available Not Available Synthroid 100 mcg tablet 1 tablet every day by oral route. active Not Available Not Available No t Available Valium 2 mg tablet Three times a day 08/16 completed Duration : 10 days;Salvador quency: tid;Alt Frequenc y: prn;Medi cation Descript ion: diazepam ; Dosage:1 ; Route:or al; refills: 0 Not Available Not Available Not Available gabapenti n 300 mg capsule Take 2 capsules 3 times a day by oral route. 09/29 completed Not Available Not Available Not Available Coumadin 5 mg tablet Daily 03/05 completed Frequenc y: daily;Me dication Descript ion: warfarin ; Dosage:a s directed ; refills: 5; Quantity :30 Not Available Not Available Not Available Pravachol 80 mg tablet Daily 03/05 completed Frequenc y: daily;Me dication Descript ion: pravasta tin; Dosage:1 ; Route:or al; refills: 5; Quantity :30 tablet Not Available Not Available Not Available Lopid 600 mg tablet Two times a day 02/27 completed Frequenc y: bid;Medi cation Descript ion: gemfibro zil; Dosage:1 ; Route:or al; refills: 5; Quantity :60 tablet Not Available Not Available Not Available [place] 7.5 mg-325 mg tablet Three times a day 08/16 completed Frequenc y: tid;Medi cation Descript ion: acetamin ophen-hy drocodon e; Route:or al; refills: 0; Quantity :6 tablet Not Available Not Available Not Available Percocet 5 mg-325 mg tablet Take 1 tablet every 6 hours by oral route as needed. 2023 active Not Available Not Available Not Avai lable sulindac 200 mg tablet Two times a day 03/05 completed Duration : 30 days;Ins truction s: HOLDING SINCE SURGERY; Frequenc y: bid;Medi cation Descript ion: sulindac ; Dosage:1 ; Route:or al; refills: 0; Quantity :30 tablet Not Available Not Available Not Available bupropion HCl XL 150 mg 24 hr tablet, extended release 150 mg by oral route. 2023 active Not Available Not Available Not Avai lable gabapenti n 300 mg tablet As Directed 02/27 completed Instruct ions: 2 qam, and 2 qhs;Freq uency: as direct.; Medicati on Descript ion: gabapent in; Route:or al; refills: 0 Not Available Not Available Not Available tizanidin e 2 mg capsule Take 2 mg twice a day by oral route. 08/16 completed Not Available Not Available Not Available Januvia 50 mg tablet Take 1 tablet every day by oral route. active Not Available Not Available No t Available Januvia 100 mg tablet 100 mg by oral route. 2023 active Not Available Not Available Not Avai lable Voltaren 1 % topical gel Every six hours 03/05 completed Duration : 30 days;Ins truction s: Apply to affected area not exceedin g 8g/day for lumbar pain.;Fr equency: q6h;Alt Frequenc y: prn pain;Med ication Descript ion: diclofen ac topical; Dosage:1 ; Route:to pical; refills: 2; Quantity :2 gel Not Available Not Available Not Available Onglyza 08/16 completed Medicati on Descript ion: saxaglip tin; Route:or al; refills: 0 Not Available Not Available Not Available Eliquis 5 mg tablet Two times a day 09/29 completed Frequenc y: bid;Medi cation Descript ion: apixaban ; Dosage:1 ; Route:or al; refills: 0 Not Available Not Available Not Available Eliquis 2.5 mg tablet Take 1 tablet twice a day by oral route. active Not Available Not Available No t Available Vitals Date Recorded Body height Body mass index (BMI) Body weight Systolic blood pressure Diastolic blood pressure Provider Name and Address Organization Details Last Updated DateTime 11/20/2023 165.1 cm 33.3 kg/m2 07756.47 g 130 mm[Hg] 80 mm[Hg] Ban Light [facility] 4 13:14:40 Date Recorded Body height Body mass index (BMI) Body weight Systolic blood pressure Diastolic blood pressure Provider Name and Address Organization Details Last Updated DateTime 01/18/2024 165.1 cm 33.3 kg/m2 69161.4 7 g 134 mm[Hg] 82 mm[Hg] Ramya Ambriz [facility] 4 10:30:19 Date Recorded Body height Body mass index (BMI) Body weight Systolic blood pressure Diastolic blood pressure Provider Name and Address Organization Details Last Updated DateTime 03/31/2024 165.1 cm 33.3 kg/m2 53651.47 g 132 mm[Hg] 82 mm[Hg] Ban Light [facility] 4 09:11:26 Social History Question Answer Notes LastModified by Organizat ion Details LastModified Time Tobacco Smoking Status Never Smoker Ban Light [facility] 03/05/2017 08:58:51 What Is Your Level Of Alcohol Consumption? None Information not available 08/16/2018 How Much Tobacco Do You Chew? None Information not available 08/16/2018 What Is Your Occupation? [employer] Information not available 08/16/2018 Live Alone Or With Others? With Others Information not available 08/16/2018 Marital Status BENITO MOLINA Information not available 08/16/2018 What Was The Date Of Your Most Recent Tobacco Screening? 08/16/2018 Information not available 08/30/2019 Has Tobacco Cessation Counseling Been Provided? No Information not available 08/16/2018 Sex: Female Functional Status None recorded. Mental Status None recorded. Family History Relationship Description Onset Age of this Age Resolved Age Notes LastModified by Organization Details LastModified Time Unspecified Relation History of alcoholism Not available 08/16 14:35:25 Unspecified Relation Malignant neoplastic disease Not available 2018 14:35:25 Unspecified Relation Myocardial infarction Not available 08/16 14:35:25 Father Heart disease Not available 2018 14:40:34 Father Diabetes mellitus Not available 2018 14:40:43 Father Hypertensive disorder Not available 2018 14:40:55 Father Cerebrovascu lar accident [email or web address] Not available 09:01:21 Father Family history of malignant neoplasm Not available 2018 14:42:05 Mother Diabetes mellitus Not available 2018 14:40:47 Mother Hypertensive disorder Not available 2018 14:40:59 Mother Family history of malignant neoplasm Not available 2018 14:42:05 Maternal Grandmother Family history of malignant neoplasm Not available 2018 14:42:05 Notes:Acute myocardial infar ction Diabetes mellitus mother Family history of cancer mother and father Family history of chronic disabling diseases back problems Hypertension mother Stroke syndrome father Family history of alcoholism Family history of chronic disabling diseases Family history of early deaths Family history of heart disease Medical History Condition Response TENS Unit for current problem N Traction for current problem N Coronary Artery Disease N Massage Therapy for current problem N Gout N Other N Thyroid Disease N Hyperthyroidism N Emphysema N Narcotic Pain Medication for current pro blem N COPD N Hypothyroidism Y Injections for current problem N Deep Vein Thrombosis N Arthritis Y Cancer N Stroke N Crohn's Disease N High Cholesterol Y Liver Disease N Dialysis N Fibromyalgia N Kidney Disease N Neuro-modulating Drugs for current probl em N Black Lung N Gallbladder Disease N Steroid Pack for current problem N NSAID Use N Osteoporosis/Osteopenia N Colon Polyps N Heart Attack ([place]) N Mental Illness N Diabetes Y Bleeding Disorder N Tuberculosis N Genetic Disorder N AIDS/HIV N Congestive Heart Failure (CHF) N Kidney Failure N Chiropractor treatment for current probl em N Diverticulitis N Ultrasound Treatment for current problem N Asthma N Epilepsy/Seizures N Sleep Apnea N Thyroid Disorder N Physical Therapy Treatments for current problem N Heart Disease N Pulmonary Embolism N Hypertension N Gynecological HistoryNo gynecological history recorded. Obstetrics History GPAL:G 0 P 0 0 0 0 Immunizations Vaccine Type Date Status Note Provider Nam e and Address Organization Details Recorded Time Hep A, adult 05/13/2017 heavenly Menjivar [facility] 08/16/2018 14:38:42 Past Encounters Encounter ID Performer Location Encounter Start Date Encounter Closed Date Diagnosis/Indication Diagnosis SNOMED-CT Code Diagnosis ICD10 Code Diagnosis Note [id number] LAQUITA LOWE APRN PA[facility] [address] [place] [address] 08/07/2016 08:57:32 08/07/2016 10:02:59 Cervical spondylosis 689709231 M47.812 Low back pain 663526426 M54.5 Neck pain 86069178 M54.2 Shoulder pain 22891428 M 25.519 Carpal john kevyn syndrome 27296849 G56.02 [id number] LAQUITA LOWE APRN PAIN MEDICINE [address] [place] [address] 09/18/2016 09:09:39 09/18/2016 14:04:10 Low back pain 979414053 M54.5 Lumbar spondylosis 28637 0009 M47.896 Neck pain 24019654 M54.2 Cervical spondylosis 387 419955 M47.812 Spondylolisthesis 378318 003 M43.10 [id number] FAUSTO TORIBIO MD PAIN MEDICINE [address] [place] [address] 10/03/2016 14:07:30 10/06/2016 08:24:53 Myofascial pain 384923059 M79.1 [id number] Sadaf Woody SURGERY SCHEDULE [address] [place] [address] 1 11/04/2016 11:57:56 11/04/2016 14:08:28 [id number] FAUSTO TORIBIO MD PAIN MEDICINE [address] [place] [address] 1 02/09/2017 07:50:48 02/09/2017 10:44:22 Myofascial pain 679469934 M79.1 -Continue Tizanidine 4mg 1, BID. Prescripti on provided today with 3 additional refills.-D /c Voltaren Gel.-Start Pennsaid. Prescripti on provided with 3 additional refills.-C ontinue home based physical therapy exercises. 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 Lumbar spondylosis 25001 0009 M47.896 Neck pain 09957471 M54.2 Cervico-oc cipital neuralgia 02415031 M54.81 Consider Bilateral Occipital Nerve Blocks.Sta rt Neurocream QID PRN. Prescripti on provided with 3 additional refills. [id number] OZZY FLORES MD NEUROSURG [facility] [address] [place] [address] 03/05/2017 08:37:10 03/09/2017 09:28:37 Neck pain 37519610 M54.2 [id number] Jayna Matias) Hamzah [facility] [address] [place] [address] 03/09/2017 09:12:32 03/09/2017 12:44:20 Skin sensation disturbance 69795631 R20.9 Neck pain 76685629 M54.2 Muscle weakness 96252649 M62.81 [id number] Connie (Lety) Marilyn NEUROLOGY [facility] [address] [place] [address] 08/16/2018 14:31:01 08/16/2018 16:26:06 Paresthesia 36723951 R20.2 [id number] SERGEI [facility]ACE [facility] [address] [place] [address] 09/30/2023 12:30:37 10/02/2023 12:53:23 Headache 82094691 R51.9 Cervicogenic headache 27 9309011 G44.86 Cervical radiculopathy 41767476 M54.12 Impairment of balance 38 8944618 R26.89 [id number] OZZY FLORES MD NEUROSURG [facility] [address] [place] [address] 11/20/2023 12:39:41 11/21/2023 04:45:57 Spinal stenosis in cervical region 33113362 M48.02 [id number] [facility] SURGERY SCHEDULE [address] [place] [address] 12/25/2023 10:03:44 01/05/2024 14:13:28 [id number] [facility]G [facility] [address] [place] [address] 01/01/2024 12:51:45 02/02/2024 08:51:44 [id number] [facility] [address] [place] [address] 01/18/2024 09:54:02 01/19/2024 04:29:53 Postoperative visit 609996618 Z48.89 [id number] SPIKE FOX, [employer] NEUROSURG [facility] [address] [place] [address] 03/31/2024 08:54:58 04/01/2024 04:30:38 Postoperative visit 332887335 Z48.89 Health Concerns Section Related Observation LastModified by Organization Detai ls LastModified Time None Recorded Concern Status LastModified by Organization Details LastModified Time None Recorded Advance Directives Directive None Recorded Payers Encounter Date Sequence Insurance Name Policy Number Policy Pedersen Covered Member ID Pedersen Member ID Guarantor Name 11/20/2023 1 [place] [id number] Staci Colon Molina [id number] Staci Colon Jesse 12/15/2023 1 [place] [id number] Staci Colon Jesse [id number] Staci Colon Jesse 01/01/2024 1 [place] [id number] Staci Colon Molina [id number] Staci M Jesse 01/18/2024 1 [facility] [id number] Staci Colon Jesse [id number] Staci Colon Jesse 03/31/2024 1 R [id number] Staci Colon Jesse [id number] Staci Colon Jesse Notes Date Note Type Note Provider Name and Address Organization Details Recorded Time 11/20/2023 text/html Staci Molina is a 63-year-old female on whom I have done a lumbar fusion in the past who presents with severe headaches neck stiffness and bilateral arm pain and numbness for several months. She presents today with updated imaging of the cervical spine, as well as an MRI of the brain. OZZY FLORES MD [address] [place] [address], [address], [facility] 11/20/2023 13:28:05 01/18/2024 text/html Staci Molina is a 63-year-old presenting to the clinic status post C2-3 posterior cervical fusion on 12/15/[address] Flores. Patient presents with cervical x-rays completed on 01/18/2024 through [facility]. Prior to procedure, patient reported severe headaches, neck stiffness and bilateral arm pain/numbness for several months. On imaging, patient was noted to have severe central canal stenosis at C2-3. Overall, patient is doing well with resolution of bilateral upper extremity symptoms. Patient reports her headaches prior to surgery were severe in nature and occurred 1-2 times a week. Patient reports she has only had a few since surgery and she thinks they were due to sinus origin. Patient reports occasional soreness to the posterior neck. Patient has not required pain medication since she left the hospital. Patient continues to wear cervical collar. PA only visit. MARIA M HARMON PA-C [address] [place], [address], [facility] 01/18/2024 10:42:22 03/31/2024 text/html Ms. Molina is a 63-year-old presenting to the clinic status post C2-3 posterior cervical fusion on 12/15/[address] Flores. Patient presents with cervical x-rays completed on 03/31/2024 through [facility] showing no complications or loosening. She states that her preop symptoms of cervical pain with radiating headaches shoulder weakness have completely disappear. She is happy with the results of her surgery she states she feels stiff but she knows this is normal. SPIKE FOX, MALCOLM [address] [place], [address], [facility] 03/31/2024 09:34:07 OBGyn Episode No OBEpisode recorded.
== END 2024-10-17 23:59 | disposition home or self-care (01) ==
LOC: LAB 07:58
PROVIDERS: PCP Family Medicine; Visit Provider Nurse Practitioner Family
DX: R74.8 Abnormal levels of other serum enzymes (principal)
CPT/HCPCS: 36415; 80053; 80074; 82172; 82247; 82465; 82947; 82977; 83010; 83883; 84450; 84460; 84478; 85025; 86803

== ENCOUNTER 2024-11-07 07:51 | Outpatient (CLI) | payer OTHER, SELFPAY ==
--- OUTSIDE RECORDS SUMMARY | 2024-11-07 07:53 | XMS_ITS | Data Portability ---
Author Organization [facility] Standard PATIENCE WeathersS BEVER[place] CLOSED Address [address] [facility] [address] [place] [address] Care Team Providers Care Laboratory Equipment Installer Name Role Phone CLAY AMOS Primary Care Provider CLAY AMOS Referring Provider [phone] Assessment Encounter Date Assessment Date Assessment LastModified [...] is well healed. No signs of infection. [place] were removed. Pt is doing well. Tolerated procedure well. Not available 01/19/2024 12:21:25 01/18/2024 01/18/2024 Assessment: Staci Molina is a 63-year-old presenting to the clinic status post C2-3 posterior cervical fusion on 12/15/[address] Flores. Patient presents with cervical x-rays completed on 01/18/2024 through [facility]. Patient is overall improving with resolution of [...] reviewed cervical x-rays completed on 01/18/2024 through [facility]. Hardware appears intact with no evidence of loosening or migration. Plan: Follow-up in 2 months with repeat cervical x-rays olohre Not available 01/18/2024 10:41:43 03/31/2024 03/31/2024 ASSESSMENT: Staci Molina is a 63-year-old presenting to the clinic status post C2-3 posterior cervical fusion on 12/15/[address] Flores. Patient presents with cervical x-rays completed on 01/18/2024 through [facility]. Patient denies any bowel or bladder control [...] raj spine , 2 or [address] [address] Jose A noel Name: STACI noel : [phone] Jose A noel Orderi ng Provid er: MERYL FLORES EXAM DATE: 2023 EXAM: XR CERVIC AL AP/LAT HISTOR Y: Follow -up of prior surger y COMPAR BLADIMIR: 024 FINDIN GS: There is interv al action installer ior fusion at C2-C3. There is no eviden ce of loosen ing of the hardwa re. There is straig htenin g of the cervic al spine with mild to modera te anteri or margin al spurri ng. No fractu re is identi fied. IMPRES ROOPA: 1. There is interv al action installer ior fusion at C2-C3. Interp reted By: Mami massey MD Electr onical ly Signed By: Mami massey MD on 01/18/20 9:44 AM [facility] Radiology [address], [address], 01/18/2024 18:25:47 03/31/20 24 03/31/2024 XR, cervi raj spine , 2 or [address] [place] [address] Jose A noel Name: STACI noel : [phone] Jose A noel Orderi ng Provid er: MARIA M HARMON EXAM DATE: 2023 EXAM: XR CERVIC AL AP/LAT CLINIC AL INFORM ATION: Neck pain IMAGES PROVID ED: AP, latera l, open mouth and submen molly views of the cervic al spine COMPAR BLADIMIR: 2023 FINDIN GS: Previo us action installer ior fusion C2-3. The metall ic elemen ts show no compli cation . No loosen ing. Stable appear ance. Modera te diffus e degene rative change s throug hout the cervic al spine. No radiog raphic eviden ce of injury is seen. IMPRES ROOPA: Modera te DDD with stable C2-3 action installer ior fusion Interp reted By: Jairo Rutledge MD Electr onical ly Signed By: Jairo Rutledge MD on 024 8:52 AM [facility] Radiology [facility] [address] [place] [address], [address], 03/31/2024 16:45:53 Result Notes None recorded. Problems Name Problem SNOMED Code Status Onset Date Resolution Date Notes Provider Name and Address Organization Details Recorded Time Low back pain 736681631 Active 016 From Automated Load;Provi charbel: Sandra, Ozzy;St atus: Active Not Available [facility] 7 06:44:55 Problem Notes None recorded. Procedures Surgical History Date Name Laterality Status Provider Name and Address Organization Details Recorded Time 08/16/19 19 Electromyography (EMG) with Nerve Conduction Study (NCV) completed Connie Sanders (Camille) [facility] 08/16/2018 15:37:20 03/09/20 17 Electromyography (EMG) with Nerve Conduction Study (NCV) completed Jayna Goodson (Nicky) [facility] 03/09/2017 10:55:13 11/05/19 17 Cervical Facet Injection-Curly completed FAUSTO TORIBIO MD [address] [place], [address], [facility] 11/04/2016 14:06:31 10/04/19 17 Trigger Point Injection completed FAUSTO TORIBIO MD [address] [place], [address], [facility] 10/03/2016 15:27:18 Cholecystectomy completed Ban Kuldeep [facility] 03/05/2017 08:59:02 Hysterectomy/bladde r repair completed Ban Kuldeep [facility] 03/05/2017 08:59:19 Other completed Ban Kuldeep [facility] 03/05/2017 08:59:33 Shoulder joint surgery completed Ban Kuldeep [facility] 03/05/2017 08:59:40 Back Surgery completed Ban Kuldeep [facility] 03/05/2017 09:00:07 Imaging Results Imaging Date Name Status LastModified by [facility] Details LastModified Time 12/09/2023 outpatient pre-operative testing* completed Information not available 12/15/2023 10:14:36 01/18/2024 XR, cervical spine, 2 or 3 view completed [facility] Radiology [facility] [address] [place], [address], 01/18/2024 18:25:47 03/31/2024 XR, cervical spine, 2 or 3 view completed [facility] Radiology [facility] [address] [place], [address], 03/31/2024 16:45:53 Procedure Notes None recorded. Medical Equipment None Reported. Allergies Allergen ID Allergen Name Allergen Category Reaction Reaction Severity Criticality Documentation Date Start Date Code Code System Note Provider Name and Address Organization Details Recorded Time 774371 E-Mycin medicatio n Not available Not available Not available 06/06/20162012 8 RxNorm Comme nt: Creat ed By: Jackie parkinson Date: 05/04 3:05: 24 PM; Not Available [facility] 6 08:07:59 287518 cefazolin sodium medicatio n Not available Not available Not available 06/06/2016201217 1 RxNorm Comme nt: Creat ed By: Jackie Barkersa Chatterjee tesha Date: 05/04 3:05: 07 PM; Not Available [facility] 6 08:57:14 650507 erythromy laureano medicatio n Not available Not available Not available 12/18/20232012 4053 RxNorm Tiffany Crouchario [facility] 4 09:46:48 023391 cefazolin medicatio n hives Not available Not available 12/18/20232012 2180 RxNorm Tiffany Crouchario [facility] 4 09:46:48 Medications Name Sig Start Date [...] tablet Not Available Not Available Not Available Argenta 7.5 mg-325 mg tablet Three times a [...] Updated DateTime 11/20/2023 165.1 cm 33.3 kg/m2 50905.47 g 130 mm[Hg] 80 mm[Hg] Ban Light [facility] 4 13:14:40 Date Recorded Body height Body mass index (BMI) Body weight Systolic blood pressure Diastolic blood pressure Provider Name and Address Organization Details Last Updated DateTime 01/18/2024 165.1 cm 33.3 kg/m2 63642.4 7 g 134 mm[Hg] 82 mm[Hg] Ramya Ambriz [facility] 4 10:30:19 Date Recorded Body height Body mass index (BMI) Body weight Systolic blood pressure Diastolic blood pressure Provider Name and Address Organization Details Last Updated DateTime 03/31/2024 165.1 cm 33.3 kg/m2 77593.47 g 132 mm[Hg] 82 mm[Hg] Ban Light [facility] 4 09:11:26 Social History Question Answer Notes LastModified by Organizat ion Details LastModified Time Tobacco Smoking Status Never Smoker Ban Light [facility] 03/05/2017 08:58:51 What Is Your Level Of [...] problem N Traction for current problem N Massage Therapy for current problem N Coronary Artery Disease N Other N Gout N Thyroid Disease N Hyperthyroidism N Emphysema N Narcotic Pain Medication for current pro blem N COPD N Hypothyroidism Y Injections for current problem N Deep Vein Thrombosis N Arthritis Y Cancer N Stroke N Crohn's Disease N High Cholesterol Y Liver Disease N Fibromyalgia N Dialysis N Kidney Disease N Neuro-modulating Drugs for current probl em N Black Lung N Gallbladder Disease N Steroid Pack for current problem N NSAID Use N Osteoporosis/Osteopenia N Colon Polyps N Heart Attack (HI) N Mental Illness N Diabetes Y Bleeding Disorder N Tuberculosis N Genetic Disorder N AIDS/HIV N Congestive Heart Failure (CHF) N Chiropractor treatment for current probl em N Kidney Failure N Diverticulitis N Ultrasound Treatment for current [...] Recorded Time Hep A, adult 05/13/2017 [facility] 14:38:42 Past Encounters Encounter ID Performer Location Encounter Start Date Encounter Closed Date Diagnosis/Indication Diagnosis SNOMED-CT Code Diagnosis ICD10 Code Diagnosis Note [id number] LAQUITA LOWE APRN [facility] [address] [place] [address] 08/07/2016 08:57:32 08/07/2016 10:02:59 Cervical spondylosis 564958963 M47.812 Low back pain 592924797 M54.5 Neck pain 58236310 M54.2 Pain of sh oulder region 30967908 M25.519 Carpal john kevyn syndrome 14235571 G56.02 [id number] LAQUITA LOWE APRN PAIN MEDICINE [address] [place] [address] 09/18/2016 09:09:39 09/18/2016 14:04:10 Low back pain 135567053 M54.5 Lumbar spondylosis 07041 0009 M47.896 Neck pain 66661341 M54.2 Cervical spondylosis 387 137373 M47.812 Spondylolisthesis 706269 003 M43.10 [id number] FAUSTO TORIBIO MD PAIN MEDICINE [address] [place] [address] 10/03/2016 14:07:30 10/06/2016 08:24:53 Myofascial pain 265091954 M79.1 [id number] Sadaf Bong SURGERY SCHEDULE [address] [place] [address] 1 11/04/2016 11:57:56 11/04/2016 14:08:28 [id number] FAUSTO TORIBIO MD PAIN MEDICINE [address] [place] [address] 1 02/09/2017 07:50:48 02/09/2017 10:44:22 Myofascial pain 456936539 M79.1 -Continue Tizanidine 4mg 1, BID. Prescripti on provided today with 3 additional refills.-D /c Voltaren Gel.-Start Pennsaid. Prescripti on provided with 3 additional refills.-C ontinue home based physical therapy exercises. 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 Lumbar spondylosis 20757 0009 M47.896 Neck pain 56524495 M54.2 Cervico-oc cipital neuralgia 63278829 M54.81 Consider Bilateral Occipital Nerve Blocks.Sta rt Neurocream QID PRN. Prescripti on provided with 3 additional refills. [id number] OZZY FLORES MD [facility]G [facility] [address] [place] [address] 03/05/2017 08:37:10 03/09/2017 09:28:37 Neck pain 58738063 M54.2 [id number] Jayna (Alia) Goodson NEUROLOGY [facility] [address] [place] [address] 03/09/2017 09:12:32 03/09/2017 12:44:20 Skin sensation disturbance 59432545 R20.9 Neck pain 04089887 M54.2 Muscle weakness 43947306 M62.81 [id number] Connie (Lety) Marilyn [facility]Y [facility] [address] [place] [address] 08/16/2018 14:31:01 08/16/2018 16:26:06 Paresthesia 60503388 R20.2 [id number] SERGEI MACE, MALCOLM NE[facility]OSURG [facility] [address] [place] [address] 09/30/2023 12:30:37 10/02/2023 12:53:23 Headache 46959150 R51.9 Cervicogenic headache 27 8728544 G44.86 Cervical radiculopathy 06285657 M54.12 Impairment of balance 38 6392321 R26.89 [id number] OZZY FLORES MD [facility]UROS[facility] [address] [place] [address] 11/20/2023 12:39:41 11/21/2023 04:45:57 Spinal stenosis in cervical region 82560059 M48.02 [id number] [facility] Kuldeep SURGERY SCHEDULE [address] [place] [address] 12/25/2023 10:03:44 01/05/2024 14:13:28 [id number] Ban Kuldeep NEUROSURG [facility] [address] [place] [address] 01/01/2024 12:51:45 02/02/2024 08:51:44 [id number] OZZY FLORES MD NEUROSURG [facility] [address] [place] [address] 01/18/2024 09:54:02 01/19/2024 04:29:53 Postoperative visit 254037791 Z48.89 [id number] SPIKE FOX, FLOOR INSTALLATION MECHANIC NEUROSURG [facility] [address] [place] [address] 03/31/2024 08:54:58 04/01/2024 04:30:38 Postoperative visit 808946436 Z48.89 Health Concerns Section Related Observation LastModified by Organization Detai ls LastModified Time None Recorded Concern Status LastModified by Organization Details LastModified Time None Recorded Advance Directives Directive None Recorded Payers Encounter Date Sequence Insurance Name Policy Number Policy Pedersen Covered Member ID Pedersen Member ID Guarantor Name 11/20/2023 1 [place] [id number] Staci Colon Jesse [id number] Staci Colon Jesse 12/15/2023 1 [place] [id number] Staci Colon Jesse [id number] Staci Darlene Jesse 01/01/2024 1 [place] [id number] Staci M Jesse [id number] Staci Colon Jesse 01/18/2024 1 R [id number] Staci M Jesse [id number] Staci Darlene Jesse 03/31/2024 1 R [id number] Staci Colon Jesse [id number] Staci Colon Jesse Notes Date Note Type [...] MRI of the brain. OZZY FLORES MD [facility] [place], [address], [facility] 11/20/2023 13:28:05 01/18/2024 text/html Staci Molina is a 63-year-old presenting to the clinic status post C2-3 posterior cervical fusion on 12/15/[address] Flores. Patient presents with cervical x-rays completed on 01/18/2024 through [facility]. Prior to procedure, patient reported severe headaches, [...] only visit. MARIA M HARMON PA-C [address] [place], [address], [facility] 01/18/2024 10:42:22 03/31/2024 text/html Ms. Molina is a 63-year-old presenting to the clinic status post C2-3 posterior cervical fusion on 12/15/[address] Flores. Patient presents with cervical x-rays completed on 03/31/2024 through [facility] showing no complications or loosening. She states that her preop symptoms of cervical pain with radiating headaches shoulder weakness have completely disappear. She is happy with the results of her surgery she states she feels stiff but she knows this is normal. SPIKE FOX, MALCOLM [address] [place], [address], [facility] 03/31/2024 09:34:07 OBGyn Episode No OBEpisode recorded.
--- NOTE | 2024-11-07 08:00 | MR_ITS ---
FINAL REPORT CLINICAL HISTORY: RUQ pain/elevated LFTs/dilated GB duct stump RUQ PAIN X 6 MONTHS REMOVAL OF GALLBLADDER W/ STONES IN 2016 HX OF FLOWER COMPARISON: None FINDINGS: Multiplanar MR imaging of the abdomen was performed without contrast. There is magnetic susceptibility artifact noted secondary to a lumbar spine fusion. There is also degradation secondary to respiratory motion. Images of the liver reveal no evidence of mass. There is a fluid signal intensity structure in the gallbladder fossa, which communicates with the cystic duct, best seen on image #1 of series 15. By history, the patient has had a prior cholecystectomy. 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 There is ectasia of the common bile duct measuring up to 12 mm in size. The pancreatic duct is unremarkable. No intra-abdominal mass or free fluid is identified. No other mass or adenopathy is identified. IMPRESSION: Fluid signal structure is present in the gallbladder fossa, which communicates with the cystic duct. 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 Reviewed, Interpreted and Dictated by David Vazquez MD Transcribed by Kim Petersen Authenticated and [facility]
== END 2024-11-07 23:59 | disposition home or self-care (01) ==
LOC: RAD 07:52
PROVIDERS: PCP Physician Assistant; Visit Provider Nurse Practitioner Family
DX: R10.11 Right upper quadrant pain (principal); R74.8 Abnormal levels of other serum enzymes; R93.5 Abnormal findings on diagnostic imaging of other abdominal regions, including retroperitoneum
CPT/HCPCS: 74181; 76376

== ENCOUNTER 2024-11-30 07:39 | Outpatient (CLI) | payer OTHER, SELFPAY ==
--- NOTE | 2024-11-30 | CA_ITS ---
APPROVED REPORT EXAM: Comprehensive 2D, Doppler, and color-flow Echocardiogram Inspector Chief: Juani Hand CRT Ht: 5 ft 5 in Wt: 192lbs BSA: 1.94 BP: 125/73 mmHg Indications: Diabetes, Fatigue, Hyperlipidemia, PRE OP ERCP 2D Dimensions LA Volume 38.10 mL LA Volume Index 19.10 mL/m2 (M/F) 16-34 M-Mode Dimensions RVDd 2.90 cm (0.9-2.6) LA Diam 3.26 cm (1.9-4.0) LVDd 3.18 cm (3.5-5.7) LVDs 2.02 cm (3.5-5.7) IVSd 1.56 cm (0.6-1.1) PWd 0.80 cm (0.6-1.1) EF (Teich) 67.50% FS 36.50% EDV (Teich) 40.30 mL TAPSE 1.53 (<1.7) ESV (Teich) 13.10 mL LV Diastology E Decel Time 190 (160-240 msec) E/A Ratio 0.73 MED A' 11.20 cm/s LAT A' 13.80 cm/s Aortic Valve AO Peak GR. 5.30 mmHg Mitral Valve MV E Max Juan M. 59.0 (40-130 cm/s) MV A Velocity 81.0 (40-130 cm/s) E/A Ratio 0.73 MV PHT 56.0 ms Pulmonary Valve PV Peak Velocity 163.0 (50-150 cm/s) Tricuspid Valve TR P. Velocity 242.00 cm/s RAP Estimate 10.00 mmHg RVSP 33.40 mmHg Left Ventricle The left ventricle is normal size. The left ventricular systolic function is normal. The left ventricular ejection fraction is within the normal range. There is increased LV wall thickness. There is normal LV segmental wall motion. Transmitral Doppler flow pattern suggests impaired LV relaxation. LVEF is 55%. Right Ventricle Right ventricle is mildly dilated. The right ventricular systolic function is normal. Atria The left atrium size is normal. The right atrium size is normal. There is no Doppler evidence of interatrial shunt. Aortic Valve The aortic valve is mildly thickened. There is no aortic valvular stenosis. Trace aortic regurgitation. Mitral Valve The mitral valve is normal in structure. Trace mitral regurgitation. Tricuspid Valve Tricuspid valve is grossly normal in structure and function. Trace tricuspid regurgitation. There is insufficient TR jet to estimate RVSP. Pulmonic Valve The pulmonary valve is normal in structure. Trace pulmonic regurgitation. Great Vessels The aortic root is normal in size. IVC is normal in size and collapses >50% with inspiration. Pericardium There is no pericardial effusion. Other Information Study Quality: Fair Conclusion Normal biventricular systolic function. Mild RV dilation. No significant valvular stenosis or regurgitation. Electronically signed by : Maryann Sequeira MD 11/30/2024 15:59:32
[2024-11-30 08:25] VITALS: BMI 31.9
[2024-11-30] MEDS: IVABRADINE HCL 7.5MG TABLET PO (08:36)
[2024-11-30] MEDS: METOPROLOL TARTRATE 50MG TABLET PO ×2 (08:38→09:53)
[2024-11-30 08:39] LABS: POC Glucose,Bedside 147 (70-110)
[2024-11-30 08:41] VITALS: BP 147/85; PULSE 88; RESP 18; TEMP 36.3; O2SAT 97
[2024-11-30 08:58] LABS: Sodium 139 mmol/L (136-145)
[2024-11-30 08:59] LABS: Anion Gap 12.2 mEq/L (5-15); Blood Urea Nitrogen 11 mg/dl (7-17); Calcium 9.4 mg/dl (8.4-10.2); Carbon Dioxide 29 mmol/L (22.0-30.0); Chloride 102 mmol/L (98-107); Creatinine Clearance Estimated 80 mL/min (50-200); Estimated Glomerular Filt Rate 101 ml/min (>60); GFR (African American) 123 ML/MIN (>60); Glucose 151 mg/dl (74-100); Potassium 4.2 mmoL/L (3.5-5.1)
--- NOTE | 2024-11-30 10:00 | CT_ITS ---
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 A noncontrast coronary calcium scan was performed. A CT attenuation threshold of 130 Hounsfield units (HU) was used for the detection of calcium in contiguous voxels of 1 sq mm in area to be counted as individual lesions. Bolus tracking in the ascending aorta with a threshold of 180 HU was performed. Immediately afterwards, ECG synchronized cardiac CT was then performed from the cardiac base to apex using retrospective gating with ECG tube current modulation. A total of 85 mL of Isovue 370 mg/mL contrast medium was administered at 5 mL/sec followed by a saline flush using a biphasic injection protocol. A tube voltage of 120 KVp was used. The patient received the following medications prior to the cardiac CT. 150 mg of oral metoprolol 15 mg of oral ivabradine 0.4 mg of sublingual nitroglycerin The average heart rate at the time of acquisition was 59 bpm and regular. Image Reconstruction Transaxial images were reconstructed at 0.67 mm slide thickness. Data was reviewed interactively on an advanced workstation capable of 2 and 3-dimensional displays in all conventional reconstruction formats, including multiplanar reformations, maximum intensity projections, curved multiplanar reformations, and volume rendered reconstructions. When applicable, selected routine images describing the relevant coronary anatomy and pathology were saved and sent to PACS. Complications None Technical Quality Overall image quality was good. Coronary artery opacification was adequate. Total DLP (Dose-Length Product) is 1807.2 mGy-cm. The reported value represents the total of one or more individual components during the CT acquisition of this date and at this time, and as such, the same value may appear in more than one CT report depending on the interpreting/reporting physicians. COMPARISON None FINDINGS CT Coronary Calcium Scoring LMA (Left Main Artery) = 21 LAD (Left Anterior Descending) = 45 LCX (Left Coronary Circumflex) = 23 RCA (Right Coronary Artery) = 0 Total Calcium Score = 89 using the AJ-130 method. The observed calcium score of 89 is at 85th percentile for subjects of the same age, sex, and race/ethnicity. The interpretation of the calcium heart score is based on the following continuum*: 0 = no calcified plaque detected (risk of coronary artery disease is very low ??? less than 5%) 1-10 = calcium detected in extremely minimal levels (risk of coronary diseases is still low ??? less than 10%) 11-100 = mild levels of plaque detected with certainty (mild or minimal narrowing of heart arteries is likely) 101-400 = definite,at least moderate levels of plaque detected (relatively high risk of a heart attack within 3-5 years) >401-999 = extensive levels of plaque detected (high risk of heart attack, high levels of vascular disease are present, high likelihood of at least one significant coronary narrowing) *The calcium heart score quantifies the burden of coronary calcification/plaque in the coronary arteries. The calcium heart score is not able to evaluate the presence or burden of non-calcified (i.e. soft) plaque. There is no mild calcification in the mitral annulus. Coronary CT Angiography The coronary arterial system is left dominant. Quantitative Stenosis Grading: Left Main (LM): The left main originates normally from the left sinus of Valsalva. The LM bifurcates into the left anterior descending artery and left circumflex artery. There is mixed calcified/noncalcified plaque in the distal LM with < 25% luminal stenosis. Left Anterior Descending (LAD) and Diagonal Branches: The LAD gives off 3 diagonal branch(es). There is mixed calcified/noncalcified plaque in the proximal LAD segment, with up to 25-49% luminal stenosis. There is no evidence of LAD-myocardial bridge. Left Circumflex (LCX) and Obtuse Marginals (OM): The LCX gives off 2 Obtuse Marginal (OM) branch(es). There is noncalcified plaque in the proximal and distal LCx segments with up to 25-49% luminal stenosis. Right Coronary Artery (RCA): The RCA originates normally from the right sinus of Valsalva. The RCA and its branches are patent with no evidence of atherosclerosis. Non-Coronary Cardiac Findings: Analysis of the left ventricular (LV) structure and function was performed after 3-D reconstruction of the LV from axial images, with user-corrected automatic contouring for assessment of LV volumes and user-defined reconstruction from oblique planes for measurement of 3-D cardiac structure and function. -The left ventricle systolic function is normal. -There is no left atrial appendage filling defect. Two right pulmonary veins and two left pulmonary veins drain normally into the left atrium. -No pericardial thickening or calcification. -Central and branch pulmonary arteries in the [id number] are unremarkable. -Thoracic aorta within the visualized thoracic aortic-branches in the [id number] is unremarkable. Extracardiac Structures No significant extra-cardiac findings. Note, however, that this study is focused on the cardiac findings. IMPRESSION - Presence of coronary calcification with an Agatston score = 89 using the AJ-130 method. -The observed calcium score of 89 is at 85th percentile for subjects of the same age, sex, and race/ethnicity. - Mild, nonobstructive atherosclerotic coronary disease, with no evidence of significant flow-limiting atherosclerosis of the coronary arteries. -CAD-RADS 2. Management recommendations per ACC/AHA guidelines*, as clinically appropriate. *Recommendations: CAD RADS 0: Reassurance. Consider non-atherosclerotic causes of chest pain. CAD RADS 1: Consider non-atherosclerotic causes of chest pain. Consider preventive therapy and risk factor modification. CAD RADS 2: Consider non-atherosclerotic causes of chest pain. Consider preventive therapy and risk factor modification, particularly for patients with nonobstructive plaque in multiple segments. CAD RADS 3: Consider further functional testing. Consider symptom-guided anti-ischemic and preventive pharmacotherapy as well as risk factor modification per published guideline statements. CAD RADS 4A: Consider further functional testing or invasive coronary angiography with revascularization per published guideline statements. Consider symptom-guided anti-ischemic and preventive pharmacotherapy as well as risk factor modification per published guideline statements. CAD RADS 4B: Invasive coronary angiography recommended with revascularization per published guideline statements. Consider symptom-guided anti-ischemic and preventive pharmacotherapy as well as risk factor modification per published guideline statements. CAD RADS 5: Consider invasive angiography and/or viability assessment with revascularization per published guideline statements. Consider symptom-guided anti-ischemic and preventive pharmacotherapy as well as risk factor modification per published guideline statements. CRITICAL RESULT None COMMUNICATION Per this written report The coronary and cardiac findings of this CCTA were reviewed, reported, and signed by Micha Sequeira MD (Building Attendant) Conclusion Electronically signed by : Maryann Sequeira MD 11/30/2024 15:56:32
[2024-11-30 10:33] VITALS: BP 140/83; PULSE 66; RESP 16; O2SAT 94
[2024-11-30 10:36] VITALS: BP 99/60; PULSE 63; RESP 16; O2SAT 95
[2024-11-30] MEDS: 0.9 % SODIUM CHLORIDE 50 ML VIAL IV (10:44)
[2024-11-30 10:45] VITALS: BP 108/67; PULSE 70; RESP 16; O2SAT 93
[2024-11-30] MEDS: SODIUM CHLORIDE 0.9% 10ML SYR (RAD ONLY) 10 ML IV (10:45)
[2024-11-30] MEDS: IOPAMIDOL-370 (76%);100ML BOTTLE 85 ML IV (10:45)
== END 2024-11-30 10:46 | disposition home or self-care (01) ==
PROVIDERS: PCP Physician Assistant; Visit Provider Nurse Practitioner Family
DX: Z01.810 Encounter for preprocedural cardiovascular examination (principal); I51.7 Cardiomegaly; I25.10 Atherosclerotic heart disease of native coronary artery without angina pectoris; R94.31 Abnormal electrocardiogram [ECG] [EKG]; E11.9 Type 2 diabetes mellitus without complications; E78.5 Hyperlipidemia, unspecified
CPT/HCPCS: 75574; 80048; 82962; 93306; Q9967

== ENCOUNTER 2024-12-08 12:57 | Day surgery (SDC) | payer OTHER, SELFPAY ==
[2024-12-06 16:29] VITALS: BMI 31.6
[2024-12-08] VITALS (8 sets, daily range): BP systolic 123–137; BP diastolic 68–82; PULSE 70–90; RESP 14–18; TEMP 36.2–36.6; O2SAT 94–97
--- NOTE | 2024-12-08 | FL_ITS ---
FINAL REPORT CLINICAL HISTORY: ERCP 2.8 min 98.72 mGy FINDINGS: FLUOROSCOPY LESS THAN 1 HOUR HISTORY: Fluoroscopy guidance. Fluoroscopic guidance was provided for ERCP. A single spot film was obtained. A total of 2.8 minutes of fluoroscopy time were used. Total DAP: 98.72 mGy IMPRESSION: As above. Reviewed, Interpreted and Dictated by David Vazquez MD Transcribed by Elisha Robert Authenticated and . [facility]
--- NOTE | 2024-12-08 14:13 | P.PNANES_ITS ---
[facility] Disclaimer: The information contained in this section may have been updated after the patient was seen, as this information can be updated by other users. Medical History Anxiety Depression Hyperlipidemia Pre-op evaluation Abnormal ECG Fatigue Hypothyroid Diabetes mellitus, type 2 Surgical History History of lumbar fusion Hx of arthroscopy of shoulder History of hysterectomy History of cholecystectomy Family History Other Family history of cancer Social History (Updated 12/08/24 @ 14:08 by Meghan Herrera RN) Smoking Status: Never smoker second hand exposure: No alcohol intake: never substance use type: denies use current occupational status: employed Travel in the last 8 weeks?: None household members: family housing: house lives independently: No marital status: education level: college service: No halfway: No current occupational exposures/hazards: No caffeine: No special soledad needs: No agree to transfusion: No do you feel safe at home: Yes victim of physical abuse: No victim of emotional abuse: No victim of sexual abuse: No would you like helpful sources: No Have you lived/traveled outside [place] in past 30 days?: No Contact w/someone who lives/traveled outside US past 30 days?: No Exposure to someone with infectious disease in past 14 days?: No Do you have a fever (greater than 100.4 F or 38 C)?: No Have you tested positive for COVID-19?: No Exposed to someone with COVID-19 in past 14 days?: No Do you have a sore throat?: No Do you have a cough?: No Do you have any weakness?: No Do you have any diarrhea?: No Are you experiencing any unusual bleeding?: No Do you have any muscle aches/pain?: No Do you have any abdominal pain?: No Are you experiencing loss of taste or smell?: No [facility] Anesthesia Checklist Patient Identification Patient Identification: Arm Band Structural Data Admitted From: Home Planned Operative Procedure/s: ERCP Consent for Planned Operative Procedure(s) Verified: Yes Verified Documents: Surgical Consent and History and Physical NPO Status Verified Time NPO: 00:00 Additional verifications Anesthesia Reactions: Yes (N/V) Hx Blood Transfusions: No Blood Transfusion Reaction: No Airway Assessment Mallampati Score:: Class II C-Spine Mobility Assessed: Yes TMJ Mobility Assessed: Yes Dentition: Good Dentition Neurological Assessment Level of Consciousness: Awake, Alert and Appropriate Anesthesia Plan Anesthesia Risk discussed: Yes Anesthesia Plan: Verified ASA Class: III Anesthesia Type: General
[2024-12-08] MEDS: LACTATED RINGERS 1000ML 1,000 ML 50 ML IV (14:15)
--- NOTE | 2024-12-08 15:03 | EXP.HP ---
History of Present Illness *Admission Date: 12/08/24 *Reason for visit:: Right upper quadrant abdominal pain *History of present illness: Mrs. Molina is a 64-year-old female who is here for diagnostic ERCP secondary to right upper quadrant abdominal pain and dilated gallbladder duct stump. She also has elevated liver chemistries. The examination is deemed medically necessary for diagnostic ERCP. The patient has been seen, interviewed and examined prior to the procedure by both myself and the anesthesia provider. [facility] Disclaimer: The information contained in this section may have been updated after the patient was seen, as this information can be updated by other users. Medical History Anxiety Depression Hyperlipidemia Pre-op evaluation Abnormal ECG Fatigue Hypothyroid Diabetes mellitus, type 2 Surgical History History of lumbar fusion Hx of arthroscopy of shoulder History of hysterectomy History of cholecystectomy Family History Other Family history of cancer Social History (Updated 12/08/24 @ 14:08 by Meghan Herrera RN) Smoking Status: Never smoker second hand exposure: No alcohol intake: never substance use type: denies use current occupational status: employed Travel in the last 8 weeks?: None household members: family housing: house lives independently: No marital status: education level: college service: No group home: No current occupational exposures/hazards: No caffeine: No special soledad needs: No agree to transfusion: No do you feel safe at home: Yes victim of physical abuse: No victim of emotional abuse: No victim of sexual abuse: No would you like helpful sources: No Have you lived/traveled outside US in past 30 days?: No Contact w/someone who lives/traveled outside US past 30 days?: No Exposure to someone with infectious disease in past 14 days?: No Do you have a fever (greater than 100.4 F or 38 C)?: No Have you tested positive for COVID-19?: No Exposed to someone with COVID-19 in past 14 days?: No Do you have a sore throat?: No Do you have a cough?: No Do you have any weakness?: No Do you have any diarrhea?: No Are you experiencing any unusual bleeding?: No Do you have any muscle aches/pain?: No Do you have any abdominal pain?: No Are you experiencing loss of taste or smell?: No Other Medical History Have you received the Flu Vaccine for this season: No Have you received the Pneumonia Vaccine: No Review of Systems Review of Systems Review of systems (narrative): Negative *Cardiovascular Comments: Negative *Gastrointestinal Comments: Negative *Genitourinary Comments: Negative *Musculoskeletal Comments: Negative *Neurologic Comments: Negative Meds Home Medications and Allergies Home Medications ?Medication ?Instructions ?Recorded ?Confirmed ?Type metformin 500 mg tablet 500 mg PO BID Diabetes 07/28/18 12/08/24 History apixaban 2.5 mg tablet (Eliquis) 2.5 mg PO BID . 12/20/19 12/08/24 History bupropion HCl 150 mg 24 hr tablet, 150 mg PO DAILY . 02/12/23 12/08/24 History extended release levothyroxine 100 mcg tablet 100 mcg PO DAILY thyroid 02/12/23 12/08/24 History hyoscyamine sulfate 0.125 mg tablet 0.125 mg PO QID PRN abdominal pain 10/13/24 12/08/24 Rx #120 tabs semaglutide 0.25 mg or 0.5 mg (2 0.25 mg SQ WEEKLY 10/13/24 12/08/24 History mg/3 mL) subcutaneous pen injector (Ozempic) alpha lipoic acid 200 mg tablet 200 mg PO DAILY FLOWER 11/15/24 12/08/24 History vitamin E 268 mg (400 unit) capsule 804 mg PO DAILY 11/15/24 12/08/24 History buspirone 5 mg tablet 5 mg PO DAILY 11/29/24 12/08/24 History aspirin 81 mg tablet,delayed 81 mg PO DAILY #90 tabs 12/01/24 12/08/24 Rx release (Adult Low Dose Aspirin) atorvastatin 40 mg tablet (Lipitor) 40 mg PO QHS #90 tabs 12/01/24 12/08/24 Rx New Prescriptions to Start Prescriptions: Allergies Allergy/AdvReac Type Severity Reaction Status Date / Time cefazolin Allergy Intermediate I-HIVES Verified 12/08/24 13:45 erythromycin base (From Allergy Intermediate I-RASH Verified 12/08/24 13:45 E-MYCIN) Exam Data for Last 24 hours Vital signs and Labs for Last 24 Hours: Temp Pulse Resp BP Pulse Ox O2 Del Method 97.1 F L 85 18 133/82 97 Room Air 12/08/24 13:51 12/08/24 13:51 12/08/24 13:51 12/08/24 13:51 12/08/24 13:51 12/08/24 13:51 I & O for Last 24 hours: Intake & Output 12/05/24 12/06/24 12/07/24 12/08/24 23:59 23:59 23:59 23:59 Weight 190 lb *Routine HEENT Exam Head: Present normocephalic Eye: Present EOMI and PERRL ENT: Present mucous membranes moist *Routine Neck Exam Neck: Present supple *Routine Respiratory Exam Respiratory: Present CTA bilaterally *Routine Cardiovascular Exam Cardiovascular: Present RRR *Routine Abdominal Exam Abdominal: Present soft and normoactive bowel sounds; Absent tenderness *Routine Rectal Exam Rectal:: deferred *Routine Genitalia Exam Genitalia:: deferred *Routine Extremities Exam Extremities: Absent cyanosis, clubbing or edema *Routine Skin Exam Skin: Present warm; Absent rash *Routine Neurological Exam Neurological: Present alert and oriented X3 Assessment and Plan *Assessment and plan (1) Common bile duct dilatation: Status: Acute Category: Medical Code(s): K83.8 - Other specified diseases of biliary tract (2) Elevated liver enzymes: Status: Acute Category: Medical Code(s): R74.8 - Abnormal levels of other serum enzymes (3) RUQ pain: Status: Acute Category: Medical Code(s): R10.11 - Right upper quadrant pain Plan A/P: 1. Right upper quadrant abdominal pain with dilated gallbladder stump and elevated liver chemistries is the preprocedural diagnosis. The patient will be anesthetized/sedated using MAC sedation. The patient has been seen and examined. Cardiac and lung assessment prior to the examination is stable. Proceed with planned diagnostic ERCP.
--- NOTE | 2024-12-08 15:20 | P.PCN_ITS ---
[facility] Procedure Note Date: 12/08/24 Time: 16:01 Procedure Note:: ERCP procedure Report: Endoscopic retrograde cholangiopancreatography with biliary sphincterotomy Endoscopist: Mychal Acosta II, MD Referring Physician: Roopa Block PA-C Date of Procedure: December 08, 2024 Equipment: Olympus 180 side viewing endoscope duodenoscope Sedation: MAC sedation Indication: Mrs. Molina is a 64-year-old female with right upper quadrant abdominal pain for years. She did have cholecystectomy in 2015 and she has had continued right upper quadrant abdominal pain since then. She did have a colonoscopy with Dr. Susan Cifuentes MD in 2022 and had 2 polyps (tubular adenoma x 1/hyperplastic polyp x 1). She has been on Creon and dicyclomine but the dicyclomine resulted in drowsiness. She felt that the Creon had helped and her fecal elastase was 432. She has had resolution of the diarrhea but she c ontinues to have the right upper quadrant abdominal pain. She does not feel gassiness, bloating or belching. Her CAT scan showed a dilated cystic duct at 22 mm and no dilation of the common bile duct. She has had some elevated liver chemistries with AST 135, ALT 128 and alkaline phosphatase 131. She does have a history of nonalcoholic fatty liver disease. The patient's MRCP showed a 12 mm common bile duct with a fluid signal intensity structure in the gallbladder fossa consistent with the cystic duct stump. Procedure: Prior to the procedure, a history and physical exam was performed, and patient's medications and allergies were reviewed. The risks (including pancreatitis), benefits and alternatives of the sedation and procedure were discussed with the patient. All questions were answered and informed consent was obtained. The patient was brought to the fluoroscopic radiology room. Patient identification and proposed procedure were verified by the physician and the nurse. The patient was placed in a swimmer's position between left lateral decubitus and prone position and the scope was passed under direct vision. Throughout the procedure, the patient's blood pressure, pulse, and oxygen saturations were monitored continuously. The ERCP was accomplished without difficulty. The patient tolerated the procedure well. Findings: The duodenoscope was passed directly into the upper esophagus and advanced to the second portion of the duodenum. The fluoroscopic C arm was then placed into position prior to cannulation with the duodenoscope was centered in a L-shaped position fluoroscopically in the second portion of duodenum. The entire endoscopic exam was done in conjunction with fluoroscopy. The cannula was then inserted through the duodenoscope channel and preloaded with low osmolar contrast. The esophagus, stomach and duodenum were normal. There was some redundant folds in the second portion but the ampulla was well-visualized. Initial attempts at cannulation freely were unsuccessful but contrast was injected and there was a wisp of contrast both in the distal pancreatic duct and common bile duct. Wire-guided cannulation was initially not successful so a needle-knife was utilized to do precut sphincterotomy. Next, the wire was able to freely cannulate the common bile duct. The common bile duct was approximately 11 to 12 mm mm in diameter. The cholangiogram did not show any filling defects or strictures. The cystic duct stump was seen and appeared slightly elongated. There were no trapped stones within the stump. There was some delayed drainage of contrast and bile. A biliary sphincterotomy was performed with excellent biliary flow. The pancreatic duct was not freely cannulated and a complete pancreatogram was not performed intentionally. Impression: 1. Mildly dilated common bile duct (11 to 12 mm) with no strictures or stones and elongated cystic duct stump with tightness at ampulla/sphincter of Oddi (rule out sphincter of Oddi dysfunction)?status post biliary sphincterotomy Plan: I do feel that the patient's right upper quadrant abdominal pain may be related to sphincter of Oddi dysfunction especially with her elevated liver chemistries and findings on ERCP with tightness at the sphincter of Oddi. She should clinically improve with biliary sphincterotomy. I will give Indocin per rectum (100 mg). I will discuss the findings with the patient and family.
[2024-12-08] MEDS: INDOMETHACIN 50MG SUPPOSITORY 100 MG RC (15:48)
--- NOTE | 2024-12-08 16:12 | EXP.ANES.I ---
[facility] Anesthesia Record Part I Anesthesia Record I Intake, IV Amount: 900 Hydration: Adequate Estimated blood loss (mL): 0 Urine output (mL): 0 Blood Products used (#): none Blood Pressure: 123/74 SaO2: 94 Pulse Rate: 90 Airway Patency: Patent Respiratory Rate: 14 Temperature: 97.8 F Patient is:: Awake and Stable Stable to PACU at:: 16:05
--- NOTE | 2024-12-08 17:09 | SUR.PHASEII ---
pt instructed to remove scopalamine patch tomorrow
--- NOTE | 2024-12-09 09:19 | EXP.ANES.II ---
[facility] Anesthesia Record Part II Anesthesia Record Part II Discharge Time: 16:58 Destination: Surgical Day Care (OP Surgery) PACU nurse assessment reviewed?: Yes Patient Condition:: Good Anesthesia Complications:: None Swallowing reflex intact?: Yes Airway Patency: Patent Cyanosis?: No Blood Pressure: 132/69 SaO2: 95 Respiratory Rate: 18 Pulse Rate: 74 Temperature: 97.5 F Mental Status: Alert & Oriented Pain level:: 0 Nausea and/or vomitting:: None Intake, IV Amount: 0 Hydration: Adequate
[2024-12-09 09:21] VITALS: BP 132/69; PULSE 74; RESP 18; TEMP 36.4; O2SAT 95
[2024-12-10 15:33] LABS: POC Glucose,Bedside 113 (70-110)
== END 2024-12-08 16:58 | disposition home or self-care (01) ==
PROVIDERS: PCP Physician Assistant; Visit Provider Internal Medicine Gastroenterology
PROC: (CPT 43260; principal; 2024-12-08 14:30)
DX: R10.11 Right upper quadrant pain (principal); R74.8 Abnormal levels of other serum enzymes; K83.8 Other specified diseases of biliary tract; K76.0 Fatty (change of) liver, not elsewhere classified; E11.9 Type 2 diabetes mellitus without complications; Z86.0102 Personal history of hyperplastic colon polyps; Z86.0101 Personal history of adenomatous and serrated colon polyps; Z79.899 Other long term (current) drug therapy; Z90.49 Acquired absence of other specified parts of digestive tract; Z88.1 Allergy status to other antibiotic agents; Z79.890 Hormone replacement therapy; Z79.82 Long term (current) use of aspirin; E03.9 Hypothyroidism, unspecified; Z79.84 Long term (current) use of oral hypoglycemic drugs; Z80.9 Family history of malignant neoplasm, unspecified
CPT/HCPCS: 43262; 74330; 76000; 82962; C1769; C1889; J1596; J2250; J2405; J2710; J3010; J7120

== ENCOUNTER 2025-02-02 09:33 | Outpatient (CLI) | payer OTHER, SELFPAY ==
--- OUTSIDE RECORDS SUMMARY | 2025-02-02 09:36 | XMS_ITS | Referral Summary ---
Author Organization [employer] ([place], [place], [place], [place]) Address [address] [place] [address] Care Team Providers Care Psychologist Personnel Name Role Phone [facility], Provider Not In The System MD Primary Care Provider Unavailable Allergies Active Allergy Reactions Criticality Noted Date Comments Cefazolin Hives,Other (See Comments) High 3 Erythromycin Other (See Comments) 05/04/2013 Medications Januvia 100 mg tablet Take 1 tablet (100 mg total) by mouth nightly. 11/23/2023 Active atorvastatin (LIPITOR) 20 MG tablet Take 1 tablet (20 mg total) by mouth nightly. 11/23/2023 Active metFORMIN (GLUCOPHAGE) 500 MG tablet Take 1 tablet (500 mg total) by mouth 2 (two) times daily. 10/05/2023 Active buPROPion (WELLBUTRIN XL) 150 MG 24 hr tablet Take 1 tablet (150 mg total) by mouth daily. 11/23/2023 Active levothyroxine (SYNTHROID, LEVOTHROID) 100 MCG tablet Take 1 tablet (100 mcg total) by mouth daily. 11/23/2023 Active Eliquis 2.5 MG tablet Take 1 tablet (2.5 mg total) by mouth 2 (two) times daily Hold for 7 days after surgery. 0 12/17/2023 Active Active Problems Problem Noted Date Diagnosed Date Cervical stenosis of spinal canal 12/15/2023 History of deep venous thrombosis 12/14/2023 12/14/2023 Type 2 diabetes mellitus wit hout complication, without long-term current use of insulin 12/14/2023 12/14/2023 Hypothyroidism 12/14/2023 Social History Tobacco Use Types Packs/Day Years Used Date Smoking Tobacco: Never Smokeless Tobacco: Never Tobacco Cessation:Counseling Given: Not Answered Alcohol Use Standard Drinks/Week Comments Never 0 (1 standard drink = 0.6 oz pur e alcohol) Utilities Answer Date Recorded In the past 12 months, has t he electric, gas, oil, or water company threatened to shut off services in your home? No 12/15/2023 Food Insecurity Answer Date Recorded Within the past 12 months, y ou worried that your food would run out before you got money to buy more. Never true 12/15/2023 Within the past 12 months, t he food you bought just didn't last and you didn't have money to get more. Never true 12/15/2023 Transportation Needs Answer Date Record ed In the past 12 months, has l ack of reliable transportation kept you from medical appointments, meetings, work or from getting things needed for daily living? No 12/15/2023 Financial Resource Strain Answer Date R ecorded How hard is it for you to pa y for the very basics like food, housing, medical care, and heating? Would you say it is: Not hard at all 12/15/2023 Employment Answer Date Recorded Do you want help finding or keeping work or a job? I do not need or want help 12/15/2023 Family and Community Support Answer Eric e Recorded If for any reason you need h elp with day-to-day activities such as bathing, preparing meals, shopping, managing finances, etc., do you get the help you need? I don't need any help 12/15/2023 Feeling Lonely or Isolated 0 12/14 Educational Attainment Answer Date Dru rded Do you speak a language other than [place] at [facility]? No 12/15/2023 Do you want help with school or training? For example, starting or completing job training or getting a high school diploma, GED or equivalent. No 12/15/2023 Physical Activity Answer Date Recorded Number of minutes of exercise per week 120 12/15/2023 Substance Use Answer Date Recorded How many times in the past y ear have you used prescription drugs for non-medical reasons? Never 12/15/2023 How many times in the past year have you used [place] legal drugs? Never 12/15/2023 Comments Unknown Sex and Gender Information Value Date Recorded Sex Assigned at Not on file Legal Sex Female 1:58 PM CDT Gender Identity Not on file Sexual Orientation Not on file Last Filed Vital Signs Vital Sign Reading Time Taken Comments Blood Pressure 116/69 12/17/2023 12:40 PM EDT Pulse 109 12/17/2023 12:40 PM EDT Temperature 37.5 C (99.5 F) 12/17/2023 12:40 PM EDT Respiratory Rate 16 12/17/2023 8:55 AM EDT Oxygen Saturation 92% 12/17/2023 12:40 PM EDT Inhaled Oxygen Concentration - - Weight 92 kg (202 lb 12.8 oz) 12/15/2023 10:50 A M EDT Height 161.3 cm (5' 3.5 ) 12/09/2023 8:09 AM EDT Body Mass Index 35.36 12/09/2023 8:09 AM EDT Plan of Treatment Not on file Medical Devices Implanted Type Area Guide Escort Device Identifier Shelf Expiration Date Model / Serial / Lot Bone Vivigen Formable Cell [facility] Bl-1600-002 - [id number] Implanted:Qty : 1 on 12/15/2023 by Fabian Flores MD at [facility] IMPLANTS N/A: Posterior Cervical LIFENET:LIFENET TRANSPLANT SRV 11/29/2024 BL-1600-0 / [id number] / Scr 4.0 Ply 3.5x26 1020-35-126 - [id number] Implanted:Qty : 2 on 12/15/2023 by Fabian Flores MD at [facility] IMPLANTS N/A: Posterior Cervical J &J:DEPUY:DEPUY SPINE 1020-35-1 26 / 035-1 26 / Scr 4.0 Ply 3.5x16 0-35-116 - [id number] Implanted:Qty : 2 on 12/15/2023 by Fabian Flores MD at [facility] IMPLANTS N/A: Posterior Cervical J &J:DEPUY:DEPUY SPINE 1020-35-1 16 / 1020-35-1 16 / St Scr 1019-00-000 - [id number] Implanted:Qty : 4 on 12/15/2023 by Fabian Flores MD at [facility] IMPLANTS N/A: Posterior Cervical J &J:DEPUY:DEPUY SPINE 1020-00-0 00 / 1020-00-0 00 / Tony Ti Tony 4.0x025 1020-64-025 - [id number] Implanted:Qty : 2 on 12/15/2023 by Fabian Flores MD at [facility] IMPLANTS N/A: Posterior Cervical J &J:DEPUY:DEPUY SPINE 064-0 25 / 064-0 25 / Insurance BLUE CROSS/BLUE SHIELD Advance Directives For more information, please contact: [phone] * Full Code (Latest Code Status on File) Date Activated Date Inactivated Comments 12/15/2023 5:31 PM 12/17/2023 7:46 PM Care Teams Psychologist Personnel Relationship Specialty Start Date End Date [facility], Provider Not In The System, [place] [address] PCP - General 12/15/23
--- OUTSIDE RECORDS SUMMARY | 2025-02-02 09:36 | XMS_ITS | Clinical Summary ---
Author Organization [employer] ([place], [place], [place], [place]) Address [address] [place] [address] Care Team Providers Care Manifold Operator Name Role Phone [facility], Provider Not In The System MD Primary [...] Do you speak a language other than [place] at [facility]? No 12/15/2023 Do you want help [...] 12/09/2023 8:09 AM EDT Plan of Treatment Health Maintenance Due Date Last Done Comments CT Colonography 1962 Colonoscopy 1962 Colorectal Cancer Screening 1962 Diabetic Kidney Health Evalu ation (KED) 1962 FOBT/FIT 1962 Fit-DNA (Cologuard) 1962 Sigmoidoscopy 1962 Diabetic Eye Exam 01/21/1972 Depression Screening (12+) 1974 HIV Screening 1977 Hepatitis C Screening 01/21/1980 DTAP/TDAP/TD VACCINES (1 - Tdap) 1981 Pneumococcal 50+ years (1 of 2 - PCV) 1981 Pap Smear 1983 Breast Cancer Screening 2002 Lipid Panel 2007 Shingles Vaccine (Zoster) (1 of 2) 01/21/2012 Hemoglobin A1C 12/14/2023 COVID-19 VACCINE ( season) 2024 06/27/2021, 09/05/2020, 07/25/2020 Tobacco Cessation Counseling and Screening (12+) 12/14/2024 12/15/2023 Influenza Vaccine (#1) 2025 Respiratory Syncytial Virus (RSV) Adult or (1 - 1-dose 75+ series) 2037 Medical Devices Implanted Type Area Desk Officer Device Identifier Shelf Expiration Date Model / Serial / Lot Bone Vivigen Formable Cell 5cc Bl-1600-002 - [id number] Implanted:Qty : 1 on 12/15/2023 by Fabian Flores MD at [facility] IMPLANTS N/A: Posterior Cervical LIFENET:LIFENET TRANSPLANT SRV 11/29/2024 BL-1600-0 02 / [id number] / Scr 4.0 Ply 3.5x26 1020-35-126 - [id number] Implanted:Qty : 2 on 12/15/2023 by Fabian Flores MD at [facility] IMPLANTS N/A: Posterior Cervical J &J:DEPUY:DEPUY SPINE 1020-35-1 26 / 1020-35-1 26 / Scr 4.0 Ply 3.5x16 1020-35-116 - [id number] Implanted:Qty : 2 on 12/15/2023 by Fabian Flores MD at [facility] IMPLANTS N/A: Posterior Cervical J &J:DEPUY:DEPUY SPINE 1020-35-1 16 / 1020-35-1 16 / St Scr 1020-00-000 - [id number] Implanted:Qty : 4 on 12/15/2023 by Fabian Flores MD at [facility] IMPLANTS N/A: Posterior Cervical J &J:DEPUY:DEPUY SPINE 1020-00-0 00 / 1020-00-0 00 / Tony Ti Tony 4.0x025 1020-64-025 - [id number] Implanted:Qty : 2 on 12/15/2023 by Fabian Flores MD at [facility] IMPLANTS N/A: Posterior Cervical J &J:DEPUY:DEPUY SPINE 1020-64-0 25 / 1020-64-0 25 / Insurance BLUE CROSS/BLUE SHIELD Advance Directives For more information, please contact: [phone] * Full Code (Latest Code Status on File) Date Activated Date Inactivated Comments 12/15/2023 5:31 PM 12/17/2023 7:46 PM Care Teams Manifold Operator Relationship Specialty Start Date End Date [facility], Provider Not In The System, [place] [address] PCP - General 12/15/23
[2025-02-02 11:15] LABS: Alanine Aminotransferase 50 U/L (12-78); Albumin Level 4.2 g/dl (3.5-5.0); Albumin/Globulin Ratio 1.8 (1.1-1.8); Alkaline Phosphatase 111 U/L (38-126); Anion Gap 12.4 mEq/L (5-15); Aspartate Amino Transferase 53 U/L (14-36); Bilirubin,Total 0.6 mg/dl (0.2-1.3); Blood Urea Nitrogen 6 mg/dl (7-17); Calcium 9.5 mg/dl (8.4-10.2); Carbon Dioxide 28 mmol/L (22.0-30.0); Chloride 105 mmol/L (98-107); Creatinine,Serum 0.60 mg/dl (0.52-1.04); Estimated Glomerular Filt Rate 101 ml/min (>60); GFR (African American) 122 ML/MIN (>60); Globulin 2.3 g/dL (1.3-3.2); Glucose 154 mg/dl (74-100); Potassium 4.4 mmoL/L (3.5-5.1); Sodium 141 mmol/L (136-145); Total Protein,Serum 6.5 g/dl (6.3-8.2)
== END 2025-02-02 23:59 | disposition home or self-care (01) ==
LOC: LAB 09:34
PROVIDERS: PCP Physician Assistant; Visit Provider Nurse Practitioner Family
DX: K75.81 Nonalcoholic steatohepatitis (NASH) (principal)
CPT/HCPCS: 36415; 80053